=== PATIENT | male | born 1995 | race Caucasian/White ===

== ENCOUNTER 2019-01-30 16:47 | Observation (INO) ==
--- NOTE | 2019-01-30 17:33 | Emergency Department Note ---
Disposition Clinical Impression: Nausea & vomiting Qualifiers: Vomiting type: cyclical vomiting Vomiting Intractability: non-intractable Qualified Code(s): G43.A0 - Cyclical vomiting, not intractable Abdominal pain Qualifiers: Abdominal location: right upper quadrant Qualified Code(s): R10.11 - Right upper quadrant pain Diarrhea Qualifiers: Diarrhea type: unspecified type Qualified Code(s): R19.7 - Diarrhea, unsp ecified Disposition: Admitted As Inpatient Condition: Good Time of Disposition: 20:05 General Adult HPI - General Chief complaint: ED Abdominal Pain Stated complaint: ABD Pain,Nausea,Vomiting,CORNELL Time Seen by Provider: 01/30/19 17:11 Source: patient Limitations: no limitations Nursing Notes Reviewed: Yes Vital Signs Reviewed: Yes - History of Present Illness HPI Narrative: 24-year-old male with past medical history of gastroparesis, possible Crohn's, and sees gastroenterology and has been seen in the ED at [facility] and [facility] multiple times in the last 7 days who presents to the ED with persistent nausea and vomiting and diarrhea with severe right sided abdominal pain. He states that his gallbladder has been evaluated and that he was told at [facility] that showed g all bladder wall thickening. He states that the zofran and benadryl he was given is no longer working and that his HIDA scan isn't scheduled until Wednesday. He admits to generalized fatigue and hasn't been able to keep anything down but some liquids for the past couple days. He denies CP, palpitations, SOB, recent trauma or injury, focal weakness, numbness or tingling. Pt Subjective Complaint: abdominal pain, nausea and vomiting Pain Scale: 10 - Related Data Previous Rx's Medication Instructions Recorded Dicyclomine [Bentyl] 10 mg PO QID 14 Days #56 capsule 01/25/18 Promethazine [Phenergan] 25 mg PO Q6HR PRN #20 tablet 01/25/18 Omeprazole [PriLOSEC] 20 mg PO BIDAC #30 cap 01/29/18 Sucralfate [Carafate] 1 gm PO 0730,1630 #8 tablet 01/29/18 Potassium Chloride 20 meq PO BID #4 tab.er.prt 06/14/18 Ondansetron ODT [Zofran ODT] 4 mg SL Q4HR #16 tab.rapdis 06/16/18 Promethazine [Phenergan] 25 mg PO Q8HR PRN #14 tablet 06/30/18 Sucralfate [Carafate] 1 gm PO QIDAC #30 tablet 07/01/18 Ondansetron ODT [Zofran ODT] 4 mg SL Q4HR PRN #6 tab.rapdis 07/02/18 Ondansetron ODT [Zofran ODT] 4 mg SL Q8HR #10 tab.rapdis 10/07/18 Pantoprazole Sodium [Protonix] 40 mg PO DAILY #30 tablet. 10/07/18 Sucralfate [Carafate] 1 gm PO QIDAC #10 tablet 10/07/18 Promethazine [Phenergan] 12.5 mg PO Q6HR PRN #7 tablet 10/08/18 Promethazine [Phenergan] 12.5 mg RC Q6HR PRN #12 supp.rect 10/09/18 Hydrocortisone Acetate [Anucort-HC] 25 mg RC BID #10 supp.rect 10/30/18 Pantoprazole Sodium [Protonix] 20 mg PO BID #6 tab 10/30/18 Promethazine [Phenergan] 12.5 mg PO Q6HR #7 tablet 10/30/18 DiphenhydraMINE [Benadryl] 25 mg PO Q6HR #20 capsule 01/21/19 Metoclopramide [Reglan] 10 mg PO Q6HR #20 tablet 01/21/19 Prochlorperazine Maleate 10 mg PO Q8HR PRN #10 tablet 01/25/19 [Compazine] cephALEXin [Keflex] 500 mg PO BID #10 capsule 01/25/19 Allergies Allergy/AdvReac Type Severity Reaction Status Date / Time prochlorperazine Allergy Unconscious Verified 01/30/19 21:42 [From Compazine] haloperidol [From Haldol] AdvReac See Verified 07/02/18 18:38 Comments metoclopramide [From Reglan] AdvReac Seizure Verified 01/30/19 21:42 promethazine [From Phenergan] AdvReac Seizure Verified 01/30/19 21:42 All systems ED: reviewed and negative except as stated. Past Medical History - Past Medical History Medical history: Reports: GERD, other Psychiatric history: Reports: no psych history - Social History Smoking Status: Never smoker Smokeless Tobacco Status: No Alcohol use: Reports: none Drug use: Reports: none Physical Exam - General Limitations: no limitations General appearance: alert (lying comfortably in bed in no acute distress) - Head Head exam: atraumatic, normocephalic - Eye Eye exam: Present: normal appearance, EOMI - ENT ENT exam: mucous membranes dry - Neck Neck exam: Present: normal inspection, full ROM, trachea midline - Respiratory Respiratory exam: Present: normal lung sounds bilaterally. Absent: respiratory distress, wheezes - Cardiovascular Cardiovascular exam: Present: regular rate, normal rhythm, +S1, +S2 - Abdominal Exam Abdominal exam: Present: soft, guarding, hypoactive bowel sounds, Vanessa's sign, other (no rashes, bruising, or scrarring noted). Absent: distention, rebound, rigidity - Extremities Exam Extremities exam: Present: normal inspection. Absent: tenderness, pedal edema - Neurological Exam Neurological exam: Present: alert, oriented X3. Absent: motor sensory deficit - Psychiatric Psychiatric exam: Present: normal affect, agitated - Skin Skin exam: Present: warm, dry, intact. Absent: rash, cyanosis, diaphoresis Course Vital Signs Temperature 98.2 F 01/30/19 16:55 Pulse Rate 108 01/30/19 16:55 Respiratory Rate 20 01/30/19 16:55 Blood Pressure 126/87 01/30/19 16:55 O2 Sat by Pulse Oximetry 97 01/30/19 16:55 Temperature 97.5 F L 01/31/19 22:15 Pulse Rate 80 01/31/19 22:15 Respiratory Rate 16 01/31/19 22:15 Blood Pressure 115/78 01/31/19 22:15 O2 Sat by Pulse Oximetry 95 01/31/19 22:15 Oxygen Delivery Oxygen Delivery Room Air Medical Decision Making - [facility] Narrative Medical decision making narrative: Clinically, suspect possible cholecystitis versus IBD. Diarrhea appears to be more chronic. RUQ abdominal pain with positive Vanessa's sign positive on exam. Slight improvement after zofran, toradol, levsin, however patient states he still feel terrible. No vomiting noted during his stay in the ED. Gallbladder ultrasound with evidence of gallbladder sludge, possible cholecystitis. WBC 11.4. Hepatic panel wnl. Vitals stable. [address] Myles who accepted the patient for admission. - Medical Records Medical records reviewed: Yes I reviewed the patient's medical records. - Lab Data Lab results reviewed: Yes I reviewed the patient's lab results. Result diagrams: 01/30/19 17:11 01/31/19 04:59 Lab Results 01/30/19 01/30/19 01/30/19 Range/Units 17:11 17:11 18:24 WBC 11.4 H (4.3-11.1) K/mcL RBC 5.20 (4.19-5.50) M/mcL Hgb 16.3 (12.9-16.9) g/dL Hct 44.3 (37.5-50.1) % MCV 85.2 (83.0-100.0) fL MCH 31.3 (28.0-33.3) pg MCHC 36.8 H (31.6-35.5) g/dL RDW 11.6 (11.5-14.5) % Plt Count 325 (140-400) K/mcL MPV 9.6 (9.4-12.4) fL Immature Gran % 0.4 (0-4) % Seg Neutrophils % 67.3 % Lymphocytes % 24.7 % Monocytes % 7.1 % Eosinophils % 0.2 % Basophils % 0.3 % Neutrophils # 7.7 (1.6-8.9) K/mcL Lymphocytes # 2.8 (0.6-4.6) K/mcL Monocytes # 0.8 (0.0-1.3) K/mcL Eosinophils # 0.0 (0.0-0.6) K/mcL Basophils # 0.0 (0.0-0.2) K/mcL Sodium 136 (136-145) mEq/L Potassium 2.9 L (3.5-5.1) mEq/L Chloride 100 (98-107) mEq/L Carbon Dioxide 24 (23-29) mEq/L BUN 6 (6-20) mg/dL Creatinine 1.04 (0.70-1.30) mg/dL Est GFR ( Amer) > 60 (> 60) Est GFR (Non-Af Amer) > 60 (> 60) BUN/Creatinine Ratio 6 (6-26) Glucose 110 H (70-105) mg/dL Calculated Osmolality 280 (280-300) Calcium 10.1 (8.6-10.3) mg/dL Magnesium 2.2 (1.6-2.6) mg/dL Total Bilirubin 1.0 (0.3-1.0) mg/dL Direct Bilirubin 0.2 (0.0-0.2) mg/dL Indirect Bilirubin 0.8 (0.0-1.2) mg/dL AST 16 (13-39) Units/L ALT 16 (7-52) Units/L Alkaline Phosphatase 55 (34-104) Units/L Serum Total Protein 7.5 (6.4-8.9) g/dL Albumin 5.1 (3.5-5.7) g/dL Globulin 2.4 (2.4-3.5) g/dL Albumin/Globulin Ratio 2.1 (1.1-2.2) Lipase 14 (11-82) Units/L Urine Color Dark Yellow (Yellow) Urine Clarity Clear (Clear) Urine pH 6.0 (5.0-8.0) pH Units Ur Specific [place] 1.026 H (1.010-1.025) Urine Protein Trace (Neg-Trace) mg/dL Urine Glucose (UA) Normal (Normal) mg/dL Urine Ketones 40 H (Negative) mg/dL Urine Blood Negative (Negative) Urine Nitrite Negative (Negative) Urine Bilirubin Small H (Negative) Urine Urobilinogen Normal (Normal) mg/dL Ur Leukocyte Esterase Negative (Negative) Ur Culture Indicated? NO (NO) - Radiology Data Radiology results reviewed: Yes I reviewed the patient's radiology results. Attestation Statement - Attestation Attestation: Resident Attestation: I examined this patient and my medical decision making was reviewed with the Resident Physician. I agree with the documented findings, disposition and treatment plan as described except to the extent set forth below. We independently had [id number] contact with the patient. Patient with right upper quadrant abdominal pain that has been persistent. Pat lukasz states he is been tried as an outpatient but is supposed to get a HIDA scan. Pain is worse than it has been. Patient will undergo further workup including blood work as well as ultrasound. Patient's abdomen has moderate tenderness right upper quadrant with positive Vanessa sign. No rebound or guarding. Case was discussed with Dr. Myles after possible acute cholecystitis seen on ultrasound. Patient accepted for admission.
[2019-01-30] MEDS ORDERED: Ondansetron ODT 4 MG TAB.RAPDIS SL ONE (18:01)
[2019-01-30] MEDS ORDERED: Ketorolac 15 MG/ML VIAL IVP ONE (18:05)
[2019-01-30 18:46] LABS: Bilirubin,Urine Small (Negative); Blood,Urine Negative (Negative); Clarity,Urine Clear (Clear); Color,Urine Dark Yellow (Yellow); Glucose,Urine (UA) Normal (Normal); Ketones,Urine 40 mg/dL (Negative); Leukocyte Esterase,Urine Negative (Negative); Nitrite,Urine Negative (Negative); Protein,Urine Trace mg/dL (Neg-Trace); Specific Gravity,Urine 1.026 (1.010-1.025); Urobilinogen,Urine Normal (Normal)
[2019-01-30 18:49] LABS: Basophils % 0.3 %; Eosinophils % 0.2 %; Hematocrit 44.3 % (37.5-50.1); Hemoglobin 16.3 g/dL (12.9-16.9); Immature Granulocytes % 0.4 % (0-4); Lymphocytes # 2.8 K/mcL (0.6-4.6); Lymphocytes % 24.7 %; Mean Corpuscular HGB Conc 36.8 g/dL (31.6-35.5); Mean Corpuscular Hemoglobin 31.3 pg (28.0-33.3); Mean Corpuscular Volume 85.2 fL (83.0-100.0); Mean Platelet Volume 9.6 fL (9.4-12.4); Monocytes # 0.8 K/mcL (0.0-1.3); Monocytes % 7.1 %; Neutrophils # 7.7 K/mcL (1.6-8.9); Platelet Count 325 K/mcL (140-400); Red Cell Distribution Width 11.6 % (11.5-14.5); Segmented Neutrophils % 67.3 %; White Blood Count 11.4 K/mcL (4.3-11.1)
[2019-01-30] MEDS: Hyoscyamine SL 0.125 MG TAB.SUBL SL PRN (18:56)
[2019-01-30 19:07] LABS: Alanine Aminotransferase 16 Units/L (7-52); Albumin 5.1 g/dL (3.5-5.7); Albumin/Globulin Ratio 2.1 (1.1-2.2); Alkaline Phosphatase 55 Units/L (34-104); Aspartate Amino Transferase 16 Units/L (13-39); BUN/Creatinine Ratio 6 (6-26); Bilirubin,Direct 0.2 mg/dL (0.0-0.2); Bilirubin,Indirect 0.8 mg/dL (0.0-1.2); Blood Urea Nitrogen 6 mg/dL (6-20); Calcium 10.1 mg/dL (8.6-10.3); Carbon Dioxide 24 mEq/L (23-29); Chloride 100 mEq/L (98-107); Globulin 2.4 g/dL (2.4-3.5); Glucose 110 mg/dL (70-105); Lipase 14 Units/L (11-82); Magnesium 2.2 mg/dL (1.6-2.6); Osmolality,Calculated 280 (280-300); Potassium 2.9 mEq/L (3.5-5.1); Sodium 136 mEq/L (136-145); Total Protein 7.5 g/dL (6.4-8.9); eGFR For African Americans > 60 (> 60); eGFR For Non-African Americans > 60 (> 60)
[2019-01-30] MEDS ORDERED: Piperacillin/Tazobactam 3.375 GM in Water for inj. (sterile) 20 ML 20 ML IVP ONE (20:05)
[2019-01-30] MEDS ORDERED: 0.9 % Sodium Chloride 1,000 ML IVC ONE (21:43)
[2019-01-30] MEDS: Ondansetron 4 MG/2 ML VIAL IVP PRN (22:18)
[2019-01-30] MEDS: *HR* OxyCODONE/APAP 10/325 TABLET PO PRN (22:19)
[2019-01-30] MEDS ORDERED: Potassium Chloride 40 MEQ, Lidocaine 1% 2 ML in D5% in Water 500 ML IVPB ONE (22:27)
--- NOTE | 2019-01-30 22:30 | Acute Care Surgery H&P ---
Date of Encounter: 01/30/19 Time of Encounter: 22:30 Assessment and Plan (1) Acute cholecystitis without calculus Current Visit: Yes Status: Acute The assessment and plan as outlined above was discussed with the patient and/or family members who expressed understanding and agreement. All questions were answered. patient appears to have acute acalculous cholecystitis. We will plan antibiotic therapy followed by laparoscopic cholecystectomy and cholangiogram tomorrow. History of Present Illness Chief complaint: Abdominal pain HPI: Mr. Kaiser is a 24 year old male The patient has had greater than 7 days of continuous right upper quadrant abdominal pain associated with nausea and vomiting. He is had multiple evaluations in various emergency rooms. Today he had positive Vanessa sign during ultrasound evaluation of the right upper quadrant in the emergency room. The patient does have gallbladder sludge and leukocytosis. Findings are consistent with acute cholecystitis. The patient denies episodes of jaundice. He does have shakes and chills but no fevers. We will plan 12 hours of IV antibiotics followed by laparoscopic cholecystectomy tomorrow. I discussed the risks and benefits of surgery with the patient including leading infection and postoperative bile leak. He understands wishes to proceed. Past Med Surg Social Fam HX - Past Medical History Medical history: GERD Additional medical history: Gastroparesis, Crohns workup w/ Dr Engel Psychiatric history: no psych history - Past Surgical History Additional surgical history: esophageal cyst sx. pilondeal cyst. wisdom teeth - Social History Smoking Status: Never smoker Smokeless Tobacco Status: No Alcohol use: none Drug use: none - Family History Mother Hx Family Cancer: Yes Medications and Allergies Dicyclomine [Bentyl] 10 mg PO QID 14 Days #56 capsule 01/25/18 [Rx] Promethazine [Phenergan] 25 mg PO Q6HR PRN #20 tablet 01/25/18 [Rx] Omeprazole [PriLOSEC] 20 mg PO BIDAC #30 cap 01/29/18 [Rx] Sucralfate [Carafate] 1 gm PO 0730,1630 #8 tablet 01/29/18 [Rx] Potassium Chloride 20 meq PO BID #4 tab.er.prt 06/14/18 [Rx] Ondansetron ODT [Zofran ODT] 4 mg SL Q4HR #16 tab.rapdis 06/16/18 [Rx] Promethazine [Phenergan] 25 mg PO Q8HR PRN #14 tablet 06/30/18 [Rx] Sucralfate [Carafate] 1 gm PO QIDAC #30 tablet 07/01/18 [Rx] Ondansetron ODT [Zofran ODT] 4 mg SL Q4HR PRN #6 tab.rapdis 07/02/18 [Rx] Ondansetron ODT [Zofran ODT] 4 mg SL Q8HR #10 tab.rapdis 10/07/18 [Rx] Pantoprazole Sodium [Protonix] 40 mg PO DAILY #30 tablet. 10/07/18 [Rx] Sucralfate [Carafate] 1 gm PO QIDAC #10 tablet 10/07/18 [Rx] Promethazine [Phenergan] 12.5 mg PO Q6HR PRN #7 tablet 10/08/18 [Rx] Promethazine [Phenergan] 12.5 mg RC Q6HR PRN #12 supp.rect 10/09/18 [Rx] Hydrocortisone Acetate [Anucort-HC] 25 mg RC BID #10 supp.rect 10/30/18 [Rx] Pantoprazole Sodium [Protonix] 20 mg PO BID #6 tab 10/30/18 [Rx] Promethazine [Phenergan] 12.5 mg PO Q6HR #7 tablet 10/30/18 [Rx] DiphenhydraMINE [Benadryl] 25 mg PO Q6HR #20 capsule 01/21/19 [Rx] Metoclopramide [Reglan] 10 mg PO Q6HR #20 tablet 01/21/19 [Rx] Prochlorperazine Maleate [Compazine] 10 mg PO Q8HR PRN #10 tablet 01/25/19 [Rx] cephALEXin [Keflex] 500 mg PO BID #10 capsule 01/25/19 [Rx] Allergy/AdvReac Type Severity Reaction Status Date / Time prochlorperazine Allergy Unconscious Verified 01/30/19 21:42 [From Compazine] haloperidol [From Haldol] AdvReac See Verified 07/02/18 18:38 Comments metoclopramide [From Reglan] AdvReac Seizure Verified 01/30/19 21:42 promethazine [From Phenergan] AdvReac Seizure Verified 01/30/19 21:42 Review of Systems All systems PM: The remainder of the systems were reviewed and are negative General Surgery Exam Initial Vital Signs Temp Pulse Resp BP Pulse Ox 98.2 F 108 20 126/87 97 01/30/19 16:55 01/30/19 16:55 01/30/19 16:55 01/30/19 16:55 01/30/19 16:55 - General physical appearance well developed, well nourished, moderate distress, moderate pain - Neck no masses, no bruits, trachea midline, no lymphadectomy, no venous distension - Respiratory normal expansion, normal respiratory effort, clear to percussion, clear to auscultation - Cardiovascular Cardiovascular exam: Present: RRR, no murmurs/rubs/gallops - Abdomen Abdomen general surgery: Present: bowel sounds present, tender Abdominal Tenderness: Present: RUQ - Integumentary Integumentary general surgery: Present: warm and dry, no abnormal pigmentation, other (No evidence of jaundice) - Neurologic Present: CN 2-12 grossly intact, normal coordination, normal sensation - Psychiatric Psychiatric general surgery: Present: appropriate, oriented to person, oriented to place, oriented to time, speech is normal, memory intact Results - Labs 01/30/19 17:11 01/30/19 17:11 Abnormal lab results WBC 11.4 K/mcL (4.3-11.1) H 01/30/19 17:11 MCHC 36.8 g/dL (31.6-35.5) H 01/30/19 17:11 Potassium 2.9 mEq/L (3.5-5.1) L 01/30/19 17:11 Glucose 110 mg/dL (70-105) H 01/30/19 17:11 Ur Specific [place] 1.026 (1.010-1.025) H 01/30/19 18:24 40 mg/dL (Negative) H 01/30/19 18:24 Small (Negative) H 01/30/19 18:24 Diabetes panel 01/30/19 Range/Units 17:11 Sodium 136 (136-145) mEq/L Potassium 2.9 L (3.5-5.1) mEq/L Chloride 100 (98-107) mEq/L Carbon Dioxide 24 (23-29) mEq/L BUN 6 (6-20) mg/dL Creatinine 1.04 (0.70-1.30) mg/dL Glucose 110 H (70-105) mg/dL Calcium 10.1 (8.6-10.3) mg/dL AST 16 (13-39) Units/L ALT 16 (7-52) Units/L Alkaline Phosphatase 55 (34-104) Units/L Albumin 5.1 (3.5-5.7) g/dL Calcium panel 01/30/19 Range/Units 17:11 Calcium 10.1 (8.6-10.3) mg/dL Albumin 5.1 (3.5-5.7) g/dL Pituitary panel 01/30/19 Range/Units 17:11 Sodium 136 (136-145) mEq/L Potassium 2.9 L (3.5-5.1) mEq/L Chloride 100 (98-107) mEq/L Carbon Dioxide 24 (23-29) mEq/L BUN 6 (6-20) mg/dL Creatinine 1.04 (0.70-1.30) mg/dL Glucose 110 H (70-105) mg/dL Calcium 10.1 (8.6-10.3) mg/dL Adrenal panel 01/30/19 Range/Units 17:11 Sodium 136 (136-145) mEq/L Potassium 2.9 L (3.5-5.1) mEq/L Chloride 100 (98-107) mEq/L Carbon Dioxide 24 (23-29) mEq/L BUN 6 (6-20) mg/dL Creatinine 1.04 (0.70-1.30) mg/dL Glucose 110 H (70-105) mg/dL Calcium 10.1 (8.6-10.3) mg/dL Total Bilirubin 1.0 (0.3-1.0) mg/dL AST 16 (13-39) Units/L ALT 16 (7-52) Units/L Alkaline Phosphatase 55 (34-104) Units/L Albumin 5.1 (3.5-5.7) g/dL All other labs normal. - Imaging US - abdomen: image reviewed (I personally reviewed the ultrasound right upper quadrant. The patient did have positive Vanessa sign during the examination. He does have sludge in gallbladder. To my examination there is a thickened gallbladder wall.) - VTE Reasons for not Prescribing Prophylaxis: Treatment not Indicated - Low risk for VTE
[2019-01-31] MEDS: *HR* OxyCODONE/APAP 10/325 TABLET PO PRN ×2 (04:07→22:07)
[2019-01-31] MEDS: Ondansetron 4 MG/2 ML VIAL IVP PRN ×4 (04:09→22:06)
[2019-01-31 05:46] LABS: BUN/Creatinine Ratio 6 (6-26); Blood Urea Nitrogen 7 mg/dL (6-20); Calcium 9.6 mg/dL (8.6-10.3); Carbon Dioxide 26 mEq/L (23-29); Chloride 102 mEq/L (98-107); Glucose 105 mg/dL (70-105); Osmolality,Calculated 284 (280-300); Potassium 3.7 mEq/L (3.5-5.1); Sodium 138 mEq/L (136-145); eGFR For African Americans > 60 (> 60); eGFR For Non-African Americans > 60 (> 60)
[2019-01-31] MEDS: Hyoscyamine SL 0.125 MG TAB.SUBL SL PRN ×2 (06:09→12:05)
[2019-01-31] MEDS: cefOXitin 2,000 MG in Water for inj. (sterile) 20 ML 20 ML IVP SCH ×3 (08:28→16:18)
[2019-01-31] MEDS: *HR* HYDROmorphone (PF) 1 MG/ML SYRINGE IVP PRN ×6 (08:35→19:55)
[2019-01-31] MEDS ORDERED: Isovue-300 50 ML VIAL ONE (17:51)
--- NOTE | 2019-01-31 17:59 | Anesthesia Evaluation PreOp ---
Date of Encounter: 01/31/19 Time of Encounter: 18:00 - Past History Planned Operation: Lap Cholecystectomy Cardiac History: Denies any Significant Hx Pulmonary History: Smoker (Marijuana occasional) INFORMATION LEAD History: Denies Any Significant HX Other Medical History: GERD, Other (Crohn's) Anesthesia History: No Prior Anesthetic Complications Alcohol Use: none Drug use: none Medications and Allergies Dicyclomine [Bentyl] 10 mg PO QID 14 Days #56 capsule 01/25/18 [Rx] Promethazine [Phenergan] 25 mg PO Q6HR PRN #20 tablet 01/25/18 [Rx] Omeprazole [PriLOSEC] 20 mg PO BIDAC #30 cap 01/29/18 [Rx] Sucralfate [Carafate] 1 gm PO 0730,1630 #8 tablet 01/29/18 [Rx] Potassium Chloride 20 meq PO BID #4 tab.er.prt 06/14/18 [Rx] Ondansetron ODT [Zofran ODT] 4 mg SL Q4HR #16 tab.rapdis 06/16/18 [Rx] Promethazine [Phenergan] 25 mg PO Q8HR PRN #14 tablet 06/30/18 [Rx] Sucralfate [Carafate] 1 gm PO QIDAC #30 tablet 07/01/18 [Rx] Ondansetron ODT [Zofran ODT] 4 mg SL Q4HR PRN #6 tab.rapdis 07/02/18 [Rx] Ondansetron ODT [Zofran ODT] 4 mg SL Q8HR #10 tab.rapdis 10/07/18 [Rx] Pantoprazole Sodium [Protonix] 40 mg PO DAILY #30 tablet.dr 10/07/18 [Rx] Sucralfate [Carafate] 1 gm PO QIDAC #10 tablet 10/07/18 [Rx] Promethazine [Phenergan] 12.5 mg PO Q6HR PRN #7 tablet 10/08/18 [Rx] Promethazine [Phenergan] 12.5 mg RC Q6HR PRN #12 supp.rect 10/09/18 [Rx] Hydrocortisone Acetate [Anucort-HC] 25 mg RC BID #10 supp.rect 10/30/18 [Rx] Pantoprazole Sodium [Protonix] 20 mg PO BID #6 tab 10/30/18 [Rx] Promethazine [Phenergan] 12.5 mg PO Q6HR #7 tablet 10/30/18 [Rx] DiphenhydraMINE [Benadryl] 25 mg PO Q6HR #20 capsule 01/21/19 [Rx] Metoclopramide [Reglan] 10 mg PO Q6HR #20 tablet 01/21/19 [Rx] Prochlorperazine Maleate [Compazine] 10 mg PO Q8HR PRN #10 tablet 01/25/19 [Rx] cephALEXin [Keflex] 500 mg PO BID #10 capsule 01/25/19 [Rx] Allergy/AdvReac Type Severity Reaction Status Date / Time prochlorperazine Allergy Unconscious Verified 01/30/19 21:42 [From Compazine] haloperidol [From Haldol] AdvReac See Verified 07/02/18 18:38 Comments metoclopramide [From Reglan] AdvReac Seizure Verified 01/30/19 21:42 promethazine [From Phenergan] AdvReac Seizure Verified 01/30/19 21:42 - Meds/Allergy Pre-op Review Medications Reviewed: Yes Allergies Reviewed: Yes Beta Blockers on Current Med List: No Anesthesia Results - Labs 01/30/19 17:11 01/31/19 04:59 Laboratory Tests 01/30/19 01/31/19 17:11 04:59 Hgb 16.3 Hct 44.3 Plt Count 325 Sodium 138 Potassium 3.7 D BUN 7 Creatinine 1.19 - Imaging EKG: report reviewed (SR) Anesthesia Exam O2 Sat Height 1.8 m Weight 90 kg O2 Sat by Pulse Oximetry 98 O2 Sat by Pulse Oximetry 98 O2 Sat by Pulse Oximetry 98 O2 Sat by Pulse Oximetry 98 O2 Sat by Pulse Oximetry 98 O2 Sat by Pulse Oximetry 99 O2 Sat by Pulse Oximetry 97 O2 Sat by Pulse Oximetry 97 Vital Signs Temp Pulse Resp BP Pulse Ox 98.2 F 108 20 126/87 97 01/30/19 16:55 01/30/19 16:55 01/30/19 16:55 01/30/19 16:55 01/30/19 16:55 Height: 5'11 Weight: 198 lbs NPO (# of Hours): MN Pain Scale: 0 - HEENT Pupil (Motor): Pupils equal, EOMI Mallampati: II Teeth: Normal Oral Opening: Greater than 3 - INFORMATION LEAD LOC: Oriented INFORMATION LEAD Motor: Normal RUE, Normal LUE, Normal RLE, Normal LLE, Normal Face INFORMATION LEAD Sensory: Normal: RUE, LUE, RLE, LLE, Face - Cardiac Rhythm: Regular Murmur: None JVD: No Carotid Bruit: No - Pulmonary Breath Sounds: bilateral Clear Respiratory Effort: Symmetrical Anesthesia Assess/Plan ASA Score: 2 Level of consciousness: Cooperative, Oriented Anesthetic Plan: General Autologous Blood: No Monitoring Plan: Standard Monitors Recovery Plan: PACU (Discussed GA, agrees to proceed)
[2019-01-31] MEDS ORDERED: cefOXitin 1,000 MG, 0.9 % Sodium Chloride 1,000 ML IR ONE ×2 (18:00→20:42)
[2019-01-31] MEDS ORDERED: Acetaminophen IV 1,000 MG/100 ML INFUS..BTL ONE (18:08)
[2019-01-31] MEDS ORDERED: Lidocaine -MPF 2% 2 ML VIAL ONE (18:35)
[2019-01-31] MEDS ORDERED: *HR* FentaNYL (PF) 100 MCG/2 ML VIAL ONE (18:35)
[2019-01-31] MEDS ORDERED: *HR* Propofol 200 MG/20 ML VIAL IVP ONE ×2 (18:35)
[2019-01-31] MEDS ORDERED: *HR* HYDROMORPHONE 2 MG/ML VIAL ONE (18:36)
--- NOTE | 2019-01-31 19:14 | Operative Note ---
Date of procedure: 01/31/19 Pre-op diagnosis: Acute cholecystitis Post-op diagnosis: same Procedure: Scopic cholecystectomy, cholangiogram Anesthesia: GETA Was there an licensed physical therapy assistant present: No Estimated blood loss (cc): 10 Specimen: Gallbladder and contents Condition: stable Disposition: PACU Procedure in Detail: Laparoscopic cholecystectomy and intraoperative cholangiogram Operative procedure: after informed consent and appropriate patient identification, the patient was taken to the major operating suite and placed supine position and given adequate general endotracheal anesthesia. The abdomen was prepped and draped in sterile fashion utilizing ChloraPrep standard draping techniques. Timeout was taken and the patient was identified. I made a vertical midline incision below the umbilicus and dissected down to level of fascia. I placed 2 traction stitches of 0 vicryl in the midline fascia and the abdominal cavity was entered visually. A Ayoub trocar was placed in the abdomen and the abdomen was insufflated to 15 mmHg pressure CO2. The gallbladder was visualized. The gallbladder had chronic inflammatory adhesions I placemed an 11 port in the subxiphoid area and two 5 mm ports in the subcostal area. The gallbladder was grasped and elevated. A variety of blunt and sharp dissection techniques were used to isolate the cystic duct and cystic artery. The cystic artery was controlled with 2 surgical clips proximally and one distally and it was divided. I placed a surgical clip on the neck the gallbladder and obtained an intraoperative cholangiogram using 10 mL of Isovue. Intraoperative cholangiogram was normal. The cholangiocatheter was removed and the cystic duct was controlled with 2 surgical clips proximally and was divided. The gallbladder was removed from the gallbladder fossae using electrocautery. The gallbladder was removed from the abdomen through the #11 port site. I replaced the #11 port and irrigated with copious amounts of antibiotic containing solution. There was no evidence of bleeding or bile leak. All trochars were removed. Fascia was closed with 0 Vicryl and the skin with 2-0 and 4-0 Vicry. He tolerated the procedure well and was transferred to recovery in stable condition
[2019-01-31] MEDS ORDERED: *HR* OxyCODONE Immed Rel 5 MG TABLET PO PRN (19:20)
--- NOTE | 2019-01-31 20:34 | Anesthesia Evaluation Post Op ---
Date of Encounter: 01/31/19 Time of Encounter: 20:15 - Vital Signs Vital Signs: Vital Signs/O2 Sat/Glucose, Most Current Temp Pulse Resp BP Pulse Ox 01/31/19 20:08 99.3 F 93 16 123/86 94 01/31/19 19:58 92 16 126/81 93 01/31/19 19:48 99.2 F 93 16 137/90 94 01/31/19 19:38 103 20 137/93 94 01/31/19 19:28 104 20 143/97 98 01/31/19 19:18 98.2 F 103 20 143/94 98 - Lungs Lungs: Clear Ascult./Percussion - Airway Airway: Non-obstructed - Cardiovascular Regular Rate - Mental Status Mental Status: Alert & Oriented, Answers Appropriately - Pain Pain Scale: 0 - Nausea Vomiting Nausea Vomiting: Not Present - Hydration Hydration: Ice chips - Discharge PostOp Status: Transfer Patient to floor
[2019-01-31] MEDS ORDERED: Hyoscyamine SL 0.125 MG TAB.SUBL SL PRN (20:42)
[2019-02-01] MEDS: cefOXitin 2,000 MG in Water for inj. (sterile) 20 ML 20 ML IVP SCH ×2 (00:30→07:49)
[2019-02-01] MEDS: *HR* HYDROmorphone (PF) 1 MG/ML SYRINGE IVP PRN ×2 (00:32→05:33)
[2019-02-01] MEDS: Ondansetron 4 MG/2 ML VIAL IVP PRN (05:29)
[2019-02-01 07:42] LABS: Basophils % 0.2 %; Eosinophils # 0.2 K/mcL (0.0-0.6); Eosinophils % 1.4 %; Hematocrit 39.7 % (37.5-50.1); Immature Granulocytes % 0.3 % (0-4); Lymphocytes # 2.9 K/mcL (0.6-4.6); Lymphocytes % 25.4 %; Mean Corpuscular HGB Conc 34.5 g/dL (31.6-35.5); Mean Corpuscular Hemoglobin 31.1 pg (28.0-33.3); Mean Platelet Volume 9.3 fL (9.4-12.4); Monocytes # 0.8 K/mcL (0.0-1.3); Neutrophils # 7.6 K/mcL (1.6-8.9); Platelet Count 242 K/mcL (140-400); Red Blood Count 4.41 M/mcL (4.19-5.50); Red Cell Distribution Width 11.5 % (11.5-14.5); Segmented Neutrophils % 65.7 %; White Blood Count 11.6 K/mcL (4.3-11.1)
[2019-02-01 07:46] LABS: Hemoglobin 13.7 g/dL (12.9-16.9)
[2019-02-01] MEDS: *HR* OxyCODONE/APAP 10/325 TABLET PO PRN (07:49)
[2019-02-01 08:00] LABS: BUN/Creatinine Ratio 8 (6-26); Blood Urea Nitrogen 8 mg/dL (6-20); Calcium 9.2 mg/dL (8.6-10.3); Carbon Dioxide 27 mEq/L (23-29); Chloride 102 mEq/L (98-107); Glucose 92 mg/dL (70-105); Osmolality,Calculated 282 (280-300); Potassium 3.3 mEq/L (3.5-5.1); Sodium 137 mEq/L (136-145); eGFR For African Americans > 60 (> 60); eGFR For Non-African Americans > 60 (> 60)
--- NOTE | 2019-02-01 09:34 | Discharge Summary ---
<Misha Humphrey P - Last Filed: 02/01/19 11:51> - NOTES TO OUTPATIENT PROVIDER Notes to Outpatient Provider: He will follow-up within 2 weeks in [facility] surgery outpatient clinic. Please read and follow given surgical instructions. Orders not resulted at time of discharge: Pending orders 01/31/19 18:52 Surgical Pathology [PTH] Routine Date of Encounter: 02/01/19 Time of Encounter: 09:15 - Discharge Diagnosis (1) Acute cholecystitis without calculus Priority: Primary Status: Acute General Surgery Exam Initial Vital Signs Temp Pulse Resp BP Pulse Ox 98.2 F 108 20 126/87 97 01/30/19 16:55 01/30/19 16:55 01/30/19 16:55 01/30/19 16:55 01/30/19 16:55 - General physical appearance well nourished, no distress, moderate pain - Eyes PERRL, normal ocular movement - ENT normal nares, normal mucosa, no congestion - Neck no masses, no bruits, trachea midline, no lymphadectomy, no venous distension - Respiratory normal expansion, normal respiratory effort, clear to percussion, clear to auscultation - Cardiovascular Cardiovascular exam: Present: RRR, regular rhythm, no murmurs/rubs/gallops - Abdomen Abdomen general surgery: Present: bowel sounds present, soft, tender. Absent: guarding, rebound, rigid Hernia: Present: none - Incision Incision: Present: clean and dry, intact - Integumentary Integumentary general surgery: Present: warm and dry - Neurologic Present: CN 2-12 grossly intact, normal coordination, normal sensation - Musculoskeletal Present: normal gait - Psychiatric Psychiatric general surgery: Present: A&Ox3, appropriate, oriented to person, oriented to place, oriented to time - Hospital Course Hospital course: Mr. Kaiser is a 24 year old male who was presented to [facility] emergency for severe acute right upper abdominal pain for last 7 days that was associated with nausea and vomiting. US abdomen showed :Small amount of gallbladder sludge with tenderness scanning over gallbladder, possibly Acute cholecystitis.On 01/31/2019 Laparoscopic cholecystectomy and intraoperative cholangiogram was performed and specimen was sent for histopathology examination. He did not have any intraoperative and postoperative completion. The patient is gradually recovering from surgery. Patient is progressively getting better, pain is minimal, no vomiting and he is slightly nauseated. His vitals are stable. He is tolerating liquid diet and we are gradually advancing diet .We are planning to send him home later today and he will follow-up in outpatient surgery clinic within 2 weeks. . - Time Spent with Patient Total time spent providing and/or coordinating discharge services: - Discharge Medications Prescriptions: New OxyCODONE/APAP 10/325 [Percocet 10/325 MG] 1 each PO Q6HR PRN 5 Days #20 tablet PRN Reason: Pain Continued Ondansetron ODT [Zofran ODT] 4 mg SL Q4HR PRN #6 tab.rapdis PRN Reason: Nausea Home Medications: Ondansetron ODT [Zofran ODT] 4 mg SL Q4HR PRN #6 tab.rapdis 07/02/18 [Rx] OxyCODONE/APAP 10/325 [Percocet 10/325 MG] 1 each PO Q6HR PRN 5 Days #20 tablet 02/01/19 [Rx] Allergies/Adverse Reactions: Allergy/AdvReac Type Severity Reaction Status Date / Time haloperidol [From Haldol] AdvReac See Verified 02/01/19 09:25 Comments metoclopramide [From Reglan] AdvReac Seizure Verified 02/01/19 09:25 prochlorperazine AdvReac Unconscious Verified 02/01/19 09:25 [From Compazine] promethazine [From Phenergan] AdvReac Seizure Verified 02/01/19 09:25 Date of admission: 01/30/19 20:43 Primary care physician: Satly Wise CNP Labs on day of discharge: Labs from last 24 hours 02/01/19 02/01/19 01/31/19 06:57 06:57 11:36 WBC 11.6 H RBC 4.41 Hgb 13.7 D Hct 39.7 MCV 90.0 MCH 31.1 MCHC 34.5 RDW 11.5 Plt Count 242 MPV 9.3 L Immature Gran % 0.3 Seg Neutrophils % 65.7 Lymphocytes % 25.4 Monocytes % 7.0 Eosinophils % 1.4 Basophils % 0.2 Neutrophils # 7.6 Lymphocytes # 2.9 Monocytes # 0.8 Eosinophils # 0.2 Basophils # 0.0 Sodium 137 Potassium 3.3 L Chloride 102 Carbon Dioxide 27 BUN 8 Creatinine 0.98 Est GFR ( Amer) > 60 Est GFR (Non-Af Amer) > 60 BUN/Creatinine Ratio 8 Glucose 92 POC Glucose 97 Calculated Osmolality 282 Calcium 9.2 - Impressions ITS Impressions Gallbladder Ultrasound 01/30/19 18:04 IMPRESSION: 1. Small amount of gallbladder sludge with tenderness scanning over gallbladder. Acute cholecystitis is a possibility. Nuclear medicine hepatobiliary scan may be obtained for confirmation. D/ / Syed Lutz MD / Syed Lutz MD Interpreting Provider: Syed Lutz MD Cholangiogram,Operative 01/31/19 00:00 IMPRESSION: Imaging performed during intraoperative cholangiogram. Please refer to the operative report for further detail. D/ / Rashad Zarate MD / Rashad Zarate MD Interpreting Provider: Rashad Zarate MD - Patient Status Disposition: Home, Self-Care Condition: Good Functional capacity at discharge: independent ambulation Overall status at discharge: patient is progressing back to baseline - Discharge Instructions Instructions: Laparoscopic Cholecystectomy (DC) Follow Up With: Salty Wise CNP [Primary Care Provider] - Peri Nichole CNP [Advanced Practice Nurse] - 02/17/19 9:15 am Additional Instructions: General Surgical Discharge Instructions 1. No pushing, pulling, or lifting greater than 15 lbs for 2 weeks (depending upon procedure). 2. You may shower beginning today, but no tub baths, soaking, or swimming for 2 weeks. 3. You may resume driving when you are off narcotics and are safe to react in a car. 4. Take ibuprofen every 8 hours for discomfort. If this does not relieve discomfort, you may take the as needed Percocet. Take narcotics as directed. Do not take more narcotics then directed and do not share your narcotics with any other person. Do not drink alcohol while on narcotics. 5. Take stool softeners (Colace) or a water based laxative (Miralax) while taking narcotics. You may hold for loose stools. 6. Report any fevers greater than 100.5F, increase abdominal discomfort, drainage that looks like pus, increased redness or pain at the surgical site, or any vomiting. 7. Report any pain in the calves, shortness of breath, or rapid heartbeat. 8. Follow-up in the office as directed. 9. If you were prescribed antibiotics, do not stop them without talking to your provider. - Diet and Activity Activity: resume usual activities as tolerated Diet: advance to your usual diet <Girma Ponce - Last Filed: 02/02/19 02:13> Orders not resulted at time of discharge: Pending orders 01/31/19 18:52 Surgical Pathology [PTH] Routine Date of Encounter: 02/02/19 General Surgery Exam Initial Vital Signs Temp Pulse Resp BP Pulse Ox 98.2 F 108 20 126/87 97 01/30/19 16:55 01/30/19 16:55 01/30/19 16:55 01/30/19 16:55 01/30/19 16:55 - Hospital Course Hospital course: Mr. Kaiser is a 24 year old male - Time Spent with Patient Total time spent providing and/or coordinating discharge services: Date of admission: 01/30/19 20:43 Primary care physician: Salty Wise CNP Labs on day of discharge: Labs from last 24 hours 02/01/19 02/01/19 01/31/19 06:57 06:57 11:36 WBC 11.6 H RBC 4.41 Hgb 13.7 D Hct 39.7 MCV 90.0 MCH 31.1 MCHC 34.5 RDW 11.5 Plt Count 242 MPV 9.3 L Immature Gran % 0.3 Seg Neutrophils % 65.7 Lymphocytes % 25.4 Monocytes % 7.0 Eosinophils % 1.4 Basophils % 0.2 Neutrophils # 7.6 Lymphocytes # 2.9 Monocytes # 0.8 Eosinophils # 0.2 Basophils # 0.0 Sodium 137 Potassium 3.3 L Chloride 102 Carbon Dioxide 27 BUN 8 Creatinine 0.98 Est GFR ( Amer) > 60 Est GFR (Non-Af Amer) > 60 BUN/Creatinine Ratio 8 Glucose 92 POC Glucose 97 Calculated Osmolality 282 Calcium 9.2 - Impressions ITS Impressions Gallbladder Ultrasound 01/30/19 18:04 IMPRESSION: 1. Small amount of gallbladder sludge with tenderness scanning over gallbladder. Acute cholecystitis is a possibility. Nuclear medicine hepatobiliary scan may be obtained for confirmation. D/ / Syed Lutz MD / Syed Lutz MD Interpreting Provider: Syed Lutz MD Cholangiogram,Operative 01/31/19 00:00 IMPRESSION: Imaging performed during intraoperative cholangiogram. Please refer to the operative report for further detail. D/ / Rashad Zarate MD / Rashad Zarate MD Interpreting Provider: Rashad Zarate MD - Attending Attestation patient seen and examined. i have reviewed all labs, imaging, and notes. i have discussed the case in detail with the patient. i agree with the above assessment and plan.
[2019-02-01] MEDS ORDERED: *HR* HYDROmorphone 2 MG TABLET PO PRN (09:58)
[2019-02-01] MEDS ORDERED: Ondansetron ODT 4 MG TAB.RAPDIS SL PRN (09:58)
[2019-02-01 11:30] VITALS: BP 122/76
== END 2019-02-01 12:46 | disposition home or self-care (01) ==
LOC: EMEROOARM 16:47 → CDU 16:47 → 3ANU 01-31 19:55
PROVIDERS: ADMIT Surgery; ATTEND Surgery

== ENCOUNTER 2019-04-24 10:57 | Inpatient (IN) ==
[2019-04-24] MEDS ORDERED: Ondansetron 4 MG/2 ML VIAL IVP ONE ×3 (11:38→21:16)
[2019-04-24] MEDS ORDERED: Hyoscyamine 0.5 MG/ML MLS IVP ONE (11:38)
[2019-04-24] MEDS ORDERED: 0.9 % Sodium Chloride 1,000 ML IVC ONE ×2 (11:38→16:25)
--- NOTE | 2019-04-24 11:40 | Emergency Department Note ---
Disposition Clinical Impression: Intractable nausea and vomiting Qualifiers: Vomiting type: unspecified Qualified Code(s): R11.2 - Nausea with vomiting, unspecified Disposition: Admitted As Inpatient Time of Disposition: 16:20 General Adult HPI - General Chief complaint: ED Abdominal Pain Stated complaint: abd pain,vomiting Time Seen by Provider: 04/24/19 11:10 Source: patient Mode of arrival: private vehicle Limitations: no limitations Nursing Notes Reviewed: Yes Vital Signs Reviewed: Yes - History of Present Illness HPI Narrative: Mr. Godfrey is a 24yo female with no significant past med hx that presents with 2 days of nausea and vomiting that started on Wednesday morning and has persisted since. Vomiting is associated with sharp R-sided abdominal pain that feels similar to the pain he experienced pre-cholecystectomy a few months back. Patient has tried Zofran and up to 8 Tramadol/day without relief. He finished his pain medication yesterday. Patient had outpatient CT done on Apr 13 for same complaint of nausea and vomiting. This showed no acute intraabdominal or pelvic abnormality. He has had counteless episodes of nonbilious nonbloody emes is. No chest pain, shortness or breath or diarrhea. No dysuria or hematura. Pain Scale: 9 - Related Data Home Medications Medication Instructions Recorded Confirmed DiphenhydraMINE [Benadryl] 25 mg PO Q6HR PRN 04/24/19 04/24/19 Ibuprofen [Ibu] 800 mg PO Q8H PRN 04/24/19 04/24/19 Ondansetron ODT [Zofran ODT] 4 mg SL Q8H PRN 04/24/19 04/24/19 Allergies Allergy/AdvReac Type Severity Reaction Status Date / Time haloperidol [From Haldol] AdvReac See Verified 04/24/19 11:02 Comments metoclopramide [From Reglan] AdvReac Seizure Verified 04/24/19 11:02 prochlorperazine AdvReac Unconscious Verified 04/24/19 11:02 [From Compazine] promethazine [From Phenergan] AdvReac Seizure Verified 04/24/19 11:02 All systems ED: reviewed and negative except as stated. Review of Systems: As Per HPI Constitutional: Denies: fever, chills Cardiovascular: Denies: chest pain, palpitations Respiratory: Denies: cough, wheezes Gastrointestinal: Reports: abdominal pain, nausea, vomiting. Denies: diarrhea, constipation Genitourinary: Denies: urgency, dysuria Past Medical History - Past Medical History Attestation: Yes The following information was validated with the patient. Source: patient Medical history: Reports: no medical history, GERD Psychiatric history: Reports: no psych history - Social History Smoking Status: Never smoker Smokeless Tobacco Status: No Alcohol use: Reports: none Drug use: Reports: marijuana Physical Exam - General Limitations: no limitations General appearance: alert, in no apparent distress, anxious - Head Head exam: atraumatic, normocephalic - Eye Eye exam: Present: normal appearance, PERRL - ENT ENT exam: mucous membranes moist, mucous membranes dry - Neck Neck exam: Present: normal inspection, trachea midline - Chest Chest inspection: Present: normal inspection, symmetric chest wall rise - Respiratory Respiratory exam: Present: normal lung sounds bilaterally. Absent: respiratory distress, wheezes - Cardiovascular Cardiovascular exam: Present: normal rhythm, tachycardia, normal heart sounds - Abdominal Exam Abdominal exam: Present: soft, other (Generalized abdominal tenderness to palpation, no rebound or guarding). Absent: distention - Extremities Exam Extremities exam: Present: normal inspection - Neurological Exam Neurological exam: Present: alert, oriented X3 - Psychiatric Psychiatric exam: Present: normal affect, normal mood - Skin Skin exam: Present: warm, dry Course Vital Signs Temperature 98.3 F 04/24/19 11:00 Pulse Rate 102 04/24/19 11:00 Respiratory Rate 16 04/24/19 11:00 Blood Pressure 147/101 04/24/19 11:00 O2 Sat by Pulse Oximetry 98 04/24/19 11:00 Temperature 98.3 F 04/24/19 11:00 Pulse Rate 80 04/24/19 14:34 Respiratory Rate 20 04/24/19 14:34 Blood Pressure 127/83 04/24/19 14:34 O2 Sat by Pulse Oximetry 99 04/24/19 14:34 Oxygen Delivery Oxygen Delivery Room Air Medical Decision Making - [facility] Narrative Medical decision making narrative: Patient has had a cholecystectomy several months ago. He is still having intermittent episodes of right-sided abdominal pain, nausea or vomiting. He follows up with gastroenterology and general surgery. He had an outpatient CT done on April 13 that showed no acute abdominal or pelvic abnormality. No gas or abscess noted where the cholecystectomy site is. He does have generalized tenderness, mildly tachycardic and appears dehydrated. We will try Zofran, IV fluids. We will repeat lab work. Patient has hemoconcentrated labs, mildly elevated total bilirubin which has been elevated in the past. Otherwise LFTs are within normal limits. No electrolyte abnormalities. He is still having persistent nausea and vomiting despite trying Phenergan, as well as IV Benadryl. He is complaining of pain and will try ketamine for the pain. We will order a second liter of IV fluids and admit the patient for intractable nausea and vomiting. 16:20 Discussed with hospitalist, Dr. Billy who accepts admission. - Medical Records Medical records reviewed: Yes I reviewed the patient's medical records. - Lab Data Lab results reviewed: Yes I reviewed the patient's lab results. Result diagrams: 04/24/19 13:14 04/24/19 13:14 Lab Results 04/24/19 04/24/19 04/24/19 Range/Units 11:45 13:14 13:14 WBC 10.7 (4.3-11.1) K/mcL RBC 5.74 H (4.19-5.50) M/mcL Hgb 17.7 H (12.9-16.9) g/dL Hct 49.5 (37.5-50.1) % MCV 86.2 (83.0-100.0) fL MCH 30.8 (28.0-33.3) pg MCHC 35.8 H (31.6-35.5) g/dL RDW 11.5 (11.5-14.5) % Plt Count 337 (140-400) K/mcL MPV 9.6 (9.4-12.4) fL Immature Gran % 0.5 (0-4) % Seg Neutrophils % 82.8 % Lymphocytes % 12.6 % Monocytes % 3.8 % Eosinophils % 0.1 % Basophils % 0.2 % Neutrophils # 8.8 (1.6-8.9) K/mcL Lymphocytes # 1.3 (0.6-4.6) K/mcL Monocytes # 0.4 (0.0-1.3) K/mcL Eosinophils # 0.0 (0.0-0.6) K/mcL Basophils # 0.0 (0.0-0.2) K/mcL Sodium 139 (136-145) mEq/L Potassium 3.9 (3.5-5.1) mEq/L Chloride 102 (98-107) mEq/L Carbon Dioxide 25 (23-29) mEq/L BUN 7 (6-20) mg/dL Creatinine 1.04 (0.70-1.30) mg/dL Est GFR ( Amer) > 60 (> 60) Est GFR (Non-Af Amer) > 60 (> 60) BUN/Creatinine Ratio 7 (6-26) Glucose 117 H (70-105) mg/dL Calculated Osmolality 287 (280-300) Calcium 11.0 H (8.6-10.3) mg/dL Total Bilirubin 1.2 H (0.3-1.0) mg/dL Direct Bilirubin 0.2 (0.0-0.2) mg/dL Indirect Bilirubin 1.0 (0.0-1.2) mg/dL AST 20 (13-39) Units/L ALT 29 (7-52) Units/L Alkaline Phosphatase 73 (34-104) Units/L Serum Total Protein 8.7 (6.4-8.9) g/dL Albumin 5.8 H (3.5-5.7) g/dL Globulin 2.9 (2.4-3.5) g/dL Albumin/Globulin Ratio 2.0 (1.1-2.2) Lipase 16 (11-82) Units/L Urine Color Yellow (Yellow) Urine Clarity Clear (Clear) Urine pH 6.0 (5.0-8.0) pH Units Ur Specific Carey 1.022 (1.010-1.025) Urine Protein Trace (Neg-Trace) mg/dL Urine Glucose (UA) Normal (Normal) mg/dL Urine Ketones Trace H (Negative) mg/dL Urine Blood Negative (Negative) Urine Nitrite Negative (Negative) Urine Bilirubin Negative (Negative) Urine Urobilinogen Normal (Normal) mg/dL Ur Leukocyte Esterase Negative (Negative) Ur Culture Indicated? NO (NO) Attestation Statement - Attestation Attestation: I, Osmin Harding, examined this patient and my medical decision-making was reviewed with the BRAND DIRECTOR/PA/Advanced Practice Nurse/Resident Physician. I agree with the documented findings, disposition and treatment plan as described except to the extent set forth below. 24-year-old male presents emergency Department with concerns of nausea and vomiting and abdominal pain. Patient states he had similar symptoms prior to return to his gallbladder removed. Since his gallbladder was removed he has had persistent pain which is being treated with tramadol. The patient ran out of his tramadol prescription yesterday and that has now had persistent nausea and vomiting, diaphoresis and lightheadedness. Patient denies recent trauma. Denies fever. He is tachycardic during the initial evaluation. He is given IV fluids which did help his tachycardia however he had persistent nausea and vomiting. He has reported allergies to multiple of the anti-emetics. Because patient has been unable to tolerate by mouth intake and be admitted for intractable nausea and vomiting.
[2019-04-24 12:03] LABS: Bilirubin,Urine Negative (Negative); Blood,Urine Negative (Negative); Clarity,Urine Clear (Clear); Color,Urine Yellow (Yellow); Glucose,Urine (UA) Normal (Normal); Ketones,Urine Trace mg/dL (Negative); Leukocyte Esterase,Urine Negative (Negative); Nitrite,Urine Negative (Negative); Protein,Urine Trace mg/dL (Neg-Trace); Specific Gravity,Urine 1.022 (1.010-1.025); Urobilinogen,Urine Normal (Normal)
[2019-04-24 13:45] LABS: Basophils % 0.2 %; Eosinophils % 0.1 %; Hematocrit 49.5 % (37.5-50.1); Hemoglobin 17.7 g/dL (12.9-16.9); Immature Granulocytes % 0.5 % (0-4); Lymphocytes # 1.3 K/mcL (0.6-4.6); Lymphocytes % 12.6 %; Mean Corpuscular HGB Conc 35.8 g/dL (31.6-35.5); Mean Corpuscular Hemoglobin 30.8 pg (28.0-33.3); Mean Corpuscular Volume 86.2 fL (83.0-100.0); Mean Platelet Volume 9.6 fL (9.4-12.4); Monocytes # 0.4 K/mcL (0.0-1.3); Monocytes % 3.8 %; Neutrophils # 8.8 K/mcL (1.6-8.9); Platelet Count 337 K/mcL (140-400); Red Blood Count 5.74 M/mcL (4.19-5.50); Red Cell Distribution Width 11.5 % (11.5-14.5); Segmented Neutrophils % 82.8 %; White Blood Count 10.7 K/mcL (4.3-11.1)
[2019-04-24 13:48] LABS: Alanine Aminotransferase 29 Units/L (7-52); Albumin 5.8 g/dL (3.5-5.7); Alkaline Phosphatase 73 Units/L (34-104); Aspartate Amino Transferase 20 Units/L (13-39); BUN/Creatinine Ratio 7 (6-26); Bilirubin,Direct 0.2 mg/dL (0.0-0.2); Bilirubin,Total 1.2 mg/dL (0.3-1.0); Blood Urea Nitrogen 7 mg/dL (6-20); Carbon Dioxide 25 mEq/L (23-29); Chloride 102 mEq/L (98-107); Globulin 2.9 g/dL (2.4-3.5); Glucose 117 mg/dL (70-105); Lipase 16 Units/L (11-82); Osmolality,Calculated 287 (280-300); Potassium 3.9 mEq/L (3.5-5.1); Sodium 139 mEq/L (136-145); Total Protein 8.7 g/dL (6.4-8.9); eGFR For African Americans > 60 (> 60); eGFR For Non-African Americans > 60 (> 60)
[2019-04-24] MEDS ORDERED: KETAMINE IVPB ONE (14:49)
[2019-04-24] MEDS ORDERED: SODIUM CHLORIDE 0.9% IVPB ONE (14:49)
[2019-04-24] MEDS ORDERED: Naloxone 0.4 MG/ML INJ IVP PRN (16:53)
--- NOTE | 2019-04-24 17:37 | Internal Med History&Physical ---
Date of Encounter: 04/24/19 Time of Encounter: 17:25 Internal Medicine - H&P: HPI Chief complaint: Nausea and vomiting Admitted From: Emergency Dept Plans for Post Hospital Care: Home History of present illness: Mr. Kaiser is a 24 year old male past medical history of gastroparesis Crohn's workup/Dr. Engel, Pilonidal disease-patient underwent laparoscopic cholecystectomy on 01/31/2019 at this facility he did not have any intraoperative or postoperative complication he was discharged home however the patient states he continued to experience right and left upper quadrant abdominal pain and nausea vomiting. He was evaluated by GI as an outpatient-it was some concerns for possible gastroparesis and was started on Reglan however patient was unable to tolerate Reglan, he did not follow-up and was placed on erythromycin however again he was unable tolerate this treatment. For the past 2 days patient has been experiencing nausea and vomiting and has not been able tolerate oral intake. He was evaluated by his primary care provider who did give him Zofran and tramadol however he this did not relieve his symptoms. He did have an outpatient CT of abdomen and pelvis with IV and oral completed on 04/13/2019 with no acute abnormality seen in abdomen or pelvis, normal-appearing appendix no obstructive uropathy colonic diverticulosis without any diverticulitis and small fat containing umbilical hernia. He presented to [facility] ED with the above complaints for was completed which did not reveal any white count and was basically unremarkable he was given IV pain medication as well as IV fluids. He has been admitted for further workup and evaluation. Currently patient does continue to complain of a sharp right upper quadrant as well as left upper quadrant pain. No aggravating or relieving factors he states the pain is not relieved with food or vomiting. He has also been vomiting nonbilious non bloody emesis. Currently he is hemodynamically stable at this time Past Med Surg Social Fam HX - Past Medical History Medical history: no medical history, GERD Additional medical history: Gastroparesis, Crohns workup w/ Dr Engel Psychiatric history: no psych history - Past Surgical History Additional surgical history: esophageal cyst sx. pilondeal cyst. wisdom teeth - Social History Smoking Status: Never smoker Smokeless Tobacco Status: No Alcohol use: none Drug use: marijuana - Family History Mother Hx Family Cancer: Yes Internal Medicine - H&P: Meds DiphenhydraMINE [Benadryl] 25 mg PO Q6HR PRN 04/24/19 [History] Ibuprofen [Ibu] 800 mg PO Q8H PRN 04/24/19 [History] Ondansetron ODT [Zofran ODT] 4 mg SL Q8H PRN 04/24/19 [History] Allergy/AdvReac Type Severity Reaction Status Date / Time haloperidol [From Haldol] AdvReac See Verified 04/24/19 11:02 Comments metoclopramide [From Reglan] AdvReac Seizure Verified 04/24/19 11:02 prochlorperazine AdvReac Unconscious Verified 04/24/19 11:02 [From Compazine] promethazine [From Phenergan] AdvReac Seizure Verified 04/24/19 11:02 All Systems PM: A 10-system review of systems was performed and is negative for pertinent findings except as documented above in the HPI. - Constitutional Constitutional: weight loss, no chills, no fever(s), no night sweats - EENT Eyes: no change in vision, no discharge, no pain, no photophobia Ears: no ear discharge, no ear pain, no tinnitus Nose, mouth and throat: no dysphagia, no nasal discharge, no neck pain, no sore throat - Cardiovascular Cardiovascular ROS IM: no chest pain, no diaphoresis, no dyspnea, no lightheadedness, no palpitations, no syncope - Respiratory Respiratory: no cough, no dyspnea, no wheezing, no excessive phlegm production - Gastrointestinal Gastrointestinal: abdominal pain, vomiting - Musculoskeletal Musculoskeletal ROS IM: no numbness, no tingling - Integumentary Integumentary IM: no rash, no unusual bruising - Neurological Neurological ROS: no confusion, no convulsions, no focal weakness, no numbness, no tingling, no tremor(s) - Hematologic/Lymphatic Hematologic/Lymphatic: no easy bruising - Constitutional Vitals: Temp Pulse Resp BP Pulse Ox 98.3 F 68 12 151/96 100 04/24/19 11:00 04/24/19 17:12 04/24/19 17:12 04/24/19 17:12 04/24/19 17:12 General appearance: Present: A&O X 3 Exam: . - Head Head exam: Present: atraumatic, normocephalic - Eye Eye exam: Present: PERRL, conjuntiva pink, sclera anicteric Pupils: Present: PERRL - Neck Neck exam general surgery: Present: supple, trachea midline. Absent: lymphadenopathy - Respiratory Respiratory exam: Present: CTAB. Absent: accessory muscle use, rales, rhonchi, wheezes - Cardiovascular Cardiovascular exam: Present: RRR, +S1, +S2. Absent: diastolic murmur, gallop, rubs, systolic murmur - GI/Abdominal GI/Abdominal exam: Present: normal bowel sounds, soft, tenderness, no peritoneal signs. Absent: distended - Extremities Exam Extremities exam: Present: warm, radial pulses palpable and symmetrical. Absent: calf tenderness, cyanotic, pedal edema - Neurological Exam Neurological exam: Present: CN II-XII intact, oriented X3, no focal deficits. Absent: pronater drift, facial droop, speech deficit - Skin Skin exam: Present: dry, intact Internal Med - H&P Results - Labs CBC & Chem 7: 04/24/19 13:14 04/24/19 13:14 Labs: Short CBC 04/24/19 Range/Units 13:14 WBC 10.7 (4.3-11.1) K/mcL Hgb 17.7 H (12.9-16.9) g/dL Hct 49.5 (37.5-50.1) % Plt Count 337 (140-400) K/mcL Neutrophils # 8.8 (1.6-8.9) K/mcL BMP 04/24/19 13:14 Sodium 139 Potassium 3.9 Chloride 102 Carbon Dioxide 25 BUN 7 Creatinine 1.04 Glucose 117 H Calcium 11.0 H Liver Function 04/24/19 Range/Units 13:14 Total Bilirubin 1.2 H (0.3-1.0) mg/dL Direct Bilirubin 0.2 (0.0-0.2) mg/dL AST 20 (13-39) Units/L ALT 29 (7-52) Units/L Alkaline Phosphatase 73 (34-104) Units/L Albumin 5.8 H (3.5-5.7) g/dL Urine 04/24/19 Range/Units 11:45 Urine Color Yellow (Yellow) Urine Clarity Clear (Clear) Urine pH 6.0 (5.0-8.0) pH Units Ur Specific [place] 1.022 (1.010-1.025) Urine Protein Trace (Neg-Trace) mg/dL Urine Glucose (UA) Normal (Normal) mg/dL - Assessment and Plan (1) DVT prophylaxis Current Visit: Yes Status: Acute Assessment and plan: SCD (2) Intractable nausea and vomiting Current Visit: Yes Status: Acute Assessment and plan: Patient has been experiencing nausea and vomiting for the past few days despite the use of antibiotics is not able tolerate any oral intake. He did have a laparoscopic cholecystectomy and intraoperative cholangiogram after experiencing acute cholecystitis on 01/31/2019. Since he has been experiencing upper abdominal pain described as sharp and nonradiating with no relieving or aggravating factors. He has been evaluated by GI as an outpatient and underwent a CT of abdomen and pelvis with contrast with nothing acute. He has been treated by GI as outpatient for possible gastroparesis and has not been tolerating treatment. On assessment his abdomen is soft with some mild tenderness and his right and left upper quadrants no guarding he does have non- bilous, nonbloody emesis no diarrhea last bowel movement was 2 days ago no hematochezia or melena-he does admit to marijuana use in the past to ease his nausea, however this was not effective and he has not used any recently. We will administer IV antibiotics Intake patient is nothing by mouth We will give oxycodone for pain GI consult has been placed-day team to follow-up with phone call We will check a tox screen Qualifiers: Vomiting type: unspecified Qualified Code(s): R11.2 - Nausea with vomiting, unspecified (3) Abdominal pain Current Visit: No Status: Acute Assessment and plan: CT of abdomen and pelvis on 04/13/2019 shows nothing acute-he has been treated as an outpatient per Dr. Engel for possible gastroparesis and was allergic to Reglan and did not tolerate erythromycin according to the patient We will continue with pain medication oxycodone Maintain patient nothing by mouth Consult GI Qualifiers: Abdominal location: right upper quadrant Qualified Code(s): R10.11 - Right upper quadrant pain - Time Spent With Patient Total time spent is greater than 50% in coordination of care (as documented) at patient's floor/unit and/or counseling patient:
[2019-04-24] MEDS: Ondansetron 4 MG/2 ML VIAL IVP PRN (20:08)
[2019-04-24 20:46] LABS: Amphetamine Screen,Urine Negative ng/mL (Cutoff=1000); Barbiturate Screen,Urine Negative ng/mL (Cutoff=200); Benzodiazepines Screen,Urine Negative ng/mL (Cutoff=200); Cannabinoid Screen,Urine Positive ng/mL (Cutoff = 50); Cocaine Screen,Urine Negative ng/mL (Cutoff= 300); Opiate Screen,Urine Negative ng/mL (Cutoff=300); Phencyclidine Screen,Urine Negative ng/mL (Cutoff=25)
[2019-04-24] MEDS: 0.9 % Sodium Chloride 1,000 ML IVC SCH (20:58)
[2019-04-24] MEDS ORDERED: *HR* HYDROmorphone (PF) 1 MG/ML SYRINGE IVP ONE (21:17)
[2019-04-25] MEDS: Ondansetron 4 MG/2 ML VIAL IVP PRN ×3 (03:07→15:49)
[2019-04-25] MEDS ORDERED: Acetaminophen IV 1,000 MG/100 ML INFUS..BTL IVPB ONE ×2 (03:21→11:28)
[2019-04-25] MEDS ORDERED: *HR* HYDROmorphone (PF) 1 MG/ML SYRINGE IVP ONE ×2 (03:23→08:22)
[2019-04-25 05:28] LABS: Basophils % 0.2 %; Eosinophils % 0.3 %; Hematocrit 37.9 % (37.5-50.1); Immature Granulocytes % 0.2 % (0-4); Lymphocytes # 2.1 K/mcL (0.6-4.6); Lymphocytes % 22.1 %; Mean Corpuscular HGB Conc 35.6 g/dL (31.6-35.5); Mean Corpuscular Volume 87.1 fL (83.0-100.0); Mean Platelet Volume 9.6 fL (9.4-12.4); Monocytes # 0.6 K/mcL (0.0-1.3); Monocytes % 6.3 %; Neutrophils # 6.6 K/mcL (1.6-8.9); Platelet Count 260 K/mcL (140-400); Red Blood Count 4.35 M/mcL (4.19-5.50); Red Cell Distribution Width 11.2 % (11.5-14.5); Segmented Neutrophils % 70.9 %; White Blood Count 9.4 K/mcL (4.3-11.1)
--- NOTE | 2019-04-25 05:36 | Event Note ---
Date of Encounter: 04/24/19 Time of Encounter: 21:03 Alerted by pts. nurse CAMERON Johnson that the pt. had been given his SL oxycodone and was now vomiting. Patient stated SL oxycodone is not helping his pain of 8-9/10. Discussed pt. w/Pharmacy for one-time dose of IVP Dilaudid 1 mg. Patient received second dose of SL oxycodone at 03:05 and began vomiting again. Patient states it now made his pain worse. Patient now reports headache from vomiting. IVPB Ofirmev ordered for headache. Additional one-time dose of IVP Dilaudid 1 mg ordered. 04:03 patient reports his pain is better and he is able to rest. SL oxycodone DCd. Nurse instructed to continue monitoring the pt. closely and alert me immediately of any adverse changes.
[2019-04-25 05:44] LABS: BUN/Creatinine Ratio 8 (6-26); Blood Urea Nitrogen 7 mg/dL (6-20); Carbon Dioxide 24 mEq/L (23-29); Chloride 104 mEq/L (98-107); Glucose 112 mg/dL (70-105); Magnesium 1.7 mg/dL (1.6-2.6); Osmolality,Calculated 285 (280-300); Phosphorous 2.7 mg/dL (2.7-4.5); Potassium 3.4 mEq/L (3.5-5.1); Sodium 138 mEq/L (136-145); eGFR For African Americans > 60 (> 60); eGFR For Non-African Americans > 60 (> 60)
[2019-04-25 05:50] LABS: Hemoglobin 13.5 g/dL (12.9-16.9)
[2019-04-25] MEDS: 0.9 % Sodium Chloride 1,000 ML IVC SCH ×2 (08:23→13:26)
[2019-04-25] MEDS ORDERED: Potassium Chloride 20 MEQ, Lidocaine 1% 2 ML in 0.9 % Sodium Chloride 250 ML IVPB ONE (08:30)
--- NOTE | 2019-04-25 08:54 | Internal Med Progress Note ---
Hospitalist Progress Note - Encounter Date of Encounter: 04/25/19 Time of Encounter: 08:50 - Subjective Interval History: Was seen and examined at bedside he continues to complain 8/ 10 abdominal pain as well as nausea he has been given narcotics overnight-GI has been consulted and has been notified of consult. Informed patient that he will receive 1 more dose of pain medication and and GI will evaluate him he verbalizes understanding - Exam Vitals: Temp Pulse Resp BP Pulse Ox 97.7 F 96 20 121/76 97 04/25/19 07:34 04/25/19 07:34 04/25/19 07:34 04/25/19 07:34 04/25/19 07:34 Exam: Skin: Free of rash and discoloration. Eyes: Sclera is white. There is no discharge from eyes. ENMT: Oral/pharyngeal mucosa is normal in appearance. There is no discharge from nose or ears. Respiratory: Normal breath sounds with no crackles and wheezes bilaterally. CV: Heart is regular with no gallop or murmur. GI: Abdomen is flat and soft with no palpable mass or visceromegaly-diffuse tenderness on palpation. : There is no tenderness in patient's flanks bilaterally. Neuro exam: He has good strength in upper and lower extremities. He has normal eye movements. Psychiatric: He has normal affect. His thought process is appropriate to the situation. - Assessment and Plan (1) DVT prophylaxis Current Visit: Yes Status: Acute Assessment and Plan: SCD (2) Intractable nausea and vomiting Current Visit: Yes Status: Acute Assessment and Plan: Patient has been experiencing nausea and vomiting for the past few days despite the use of antibiotics is not able tolerate any oral intake. He did have a laparoscopic cholecystectomy and intraoperative cholangiogram after experiencing acute cholecystitis on 01/31/2019. Since he has been experiencing upper abdominal pain described as sharp and nonradiating with no relieving or aggrav ating factors. He has been evaluated by GI as an outpatient and underwent a CT of abdomen and pelvis with contrast with nothing acute. He has been treated by GI as outpatient for possible gastroparesis and has not been tolerating treatment. On assessment his abdomen is soft with some mild tenderness and his right and left upper quadrants no guarding he does have non-bilous, nonbloody emesis no diarrhea last bowel movement was 2 days ago no hematochezia or melena- he does admit to marijuana use in the past to ease his nausea, however this was not effective and he has not used any recently. We will administer IV antibiotics Intake patient is nothing by mouth We will give oxycodone for pain GI consult has been placed-day team to follow-up with phone call We will check a tox screen 04/25 He continues to experience nausea vomiting abdominal pain We will continue with antiemetics as well as IV fluids Narcotics are not appropriate choice for gastroparesis treatment-he has received Reglan and erythromycin without improvement. GIs consulted and appreciate recommendations (3) Abdominal pain Current Visit: No Status: Acute Assessment and Plan: CT of abdomen and pelvis on 04/13/2019 shows nothing acute-he has been treated as an outpatient per Dr. Engel for possible gastroparesis and was allergic to Reglan and did not tolerate erythromycin according to the patient We will continue with pain medication oxycodone Maintain patient nothing by mouth Consult GI 04/25 We will give 1 more dose of Dilaudid-then we will give Ofirmev-narcotics are not appropriate for gastroparesis Continue nothing by mouth and IV fluids Consult to GI-discuss case this a.m. with GI - Time Spent with Patient Total time spent is greater than 50% in coordination of care (as documented) at patient's floor/unit and/or counseling patient: Internal Medicine: Result - Labs CBC & Chem 7: 04/25/19 05:07 04/25/19 05:07 Labs: Short CBC 04/24/19 04/25/19 Range/Units 13:14 05:07 WBC 10.7 9.4 (4.3-11.1) K/mcL Hgb 17.7 H 13.5 D (12.9-16.9) g/dL Hct 49.5 37.9 (37.5-50.1) % Plt Count 337 260 (140-400) K/mcL Neutrophils # 8.8 6.6 (1.6-8.9) K/mcL BMP 04/24/19 04/25/19 13:14 05:07 Sodium 139 138 Potassium 3.9 3.4 L Chloride 102 104 Carbon Dioxide 25 24 BUN 7 7 Creatinine 1.04 0.91 Glucose 117 H 112 H Calcium 11.0 H 9.0 Liver Function 04/24/19 Range/Units 13:14 Total Bilirubin 1.2 H (0.3-1.0) mg/dL Direct Bilirubin 0.2 (0.0-0.2) mg/dL AST 20 (13-39) Units/L ALT 29 (7-52) Units/L Alkaline Phosphatase 73 (34-104) Units/L Albumin 5.8 H (3.5-5.7) g/dL Urine 04/24/19 Range/Units 11:45 Urine Color Yellow (Yellow) Urine Clarity Clear (Clear) Urine pH 6.0 (5.0-8.0) pH Units Ur Specific [place] 1.022 (1.010-1.025) Urine Protein Trace (Neg-Trace) mg/dL Urine Glucose (UA) Normal (Normal) mg/dL Consult Discharge Plan - Plan Referrals: Salty Wise, [facility] [Primary Care Provider] - (2) Intractable nausea and vomiting Qualifiers: Vomiting type: unspecified Qualified Code(s): R11.2 - Nausea with vomiting, unspecified (3) Abdominal pain Qualifiers: Abdominal location: right upper quadrant Qualified Code(s): R10.11 - Right upper quadrant pain
[2019-04-25] MEDS: Pantoprazole 40 MG VIAL IVP SCH (09:25)
--- NOTE | 2019-04-25 11:51 | Gastroenterology Consult Note ---
<Maritza Chatterjee - Last Filed: 04/25/19 15:18> Date of Encounter: 04/25/19 Time of Encounter: 11:48 - Assessment and plan (1) Intractable nausea and vomiting Current Visit: Yes Status: Acute Assessment and plan: Presented to the ED due to complaining of nausea and emesis worsened in the past a few days Reports anorexia due to the nausea with diffuse abdominal pain States history of nausea and emesis with feeling of food stuck in his lower esophagus for close to a year Reports stopping marijuana for 1.5 months due to concern of marijuana induced emesis and states no relief Underwent EGD which did not show concerning for gastroparesis Pylorus was injected with botulinum toxin, additionally underwent dilation of t he esophagus Biopsies were take to rule out H.pylori Will order tissue transglutaminase to rule out celiac disease Progress to full liquid diet Further recommendations by Dr. Engel Qualifiers: Vomiting type: unspecified Qualified Code(s): R11.2 - Nausea with vomiting, unspecified - Time Spent With Patient Total time spent is greater than 50% in coordination of care (as documented) at patient's floor/unit and/or counseling patient: GI History of Present Illness - Data of Consult Requesting Physician: Luke Billy - Consult Narrative History of present illness: Mr. Kaiser is a 24 year old male with past medical history of gastroparesis who recently underwent laparoscopic cold cystectomy on 01/21/19 presented to the ED complaining of ongoing nausea and emesis. He is reporting these episodes have b een ongoing for over a year additionally associated with abdominal pain. 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 Reports the nausea has been ongoing for close to a year but the emesis started about three days ago. He is unable to tolerate oral intake due to the nausea. He had an outpatient CT of abdomen and pelvis with oral and IV contrast on 04/13/19 with no acute abnormality seen in abdomen or pelvis, normal appearing appendix but diverticulosis was seen. He reports previously he was asked to stop marijuana for concern of marijuana induced emesis and he stopped for 1.5 months without any resolution for the nasuea or emesis so he restarted marijuana. At presentation he was hemodynamically stable. This morning he reports ongoing nausea unable to intake anything and reports if he does even drink water he feels regurgitation of the contents. He is also eliciting some abdominal pain. Denies fever, chills, chest pain or shortness of breath. Past Med Surg Social Fam HX - Past Medical History Medical history: no medical history, GERD Additional medical history: Gastroparesis, Crohns workup w/ Dr Engel Psychiatric history: no psych history - Past Surgical History Additional surgical history: esophageal cyst sx. pilondeal cyst. wisdom teeth - Social History Smoking Status: Never smoker Smokeless Tobacco Status: No Alcohol use: none Drug use: marijuana - Family History Mother Hx Family Cancer: Yes - Gastrointestinal Gastrointestinal: Present: abdominal pain (diffuse), nausea, vomiting. Absent: diarrhea - Constitutional Constitutional: no fatigue, no weight loss - EENT Nose, mouth and throat: Absent: dysphagia, hoarseness, sore throat - Cardiovascular Cardiovascular ROS: Absent: chest pain, irregular heart rhythm, palpitations - Respiratory Respiratory IM: Absent: cough, dyspnea, wheezing - Neurological ROS Neurological GI: Absent: frequent falls, headache(s), tremor(s) - Hematologic/Lymphatic Hematologic/Lymphatic pediatric: Absent: easy bleeding - Musculoskeletal Musculoskeletal ROS GI: Absent: back pain - Integumentary Integumentary GI: Absent: pruritis, rash - Constitutional Vitals: Temp Pulse Resp BP Pulse Ox 97.8 F 77 20 122/75 97 04/25/19 10:45 04/25/19 10:45 04/25/19 10:45 04/25/19 10:45 04/25/19 10:45 General appearance: Present: A&O X 3, pleasant, no acute distress - Head Head exam: Present: atraumatic, normal inspection - Eye Eye exam: Present: EOMI. Absent: conjunctival injection, sclera anicteric - ENT ENT exam: Present: mucous membranes moist, normal oropharynx - Neck Neck exam general surgery: Present: full ROM, trachea midline - Respiratory Respiratory exam: Present: CTAB. Absent: rhonchi, wheezes - Cardiovascular Cardiovascular exam: Present: RRR, +S1, +S2 - GI/Abdominal GI/Abdominal exam: Present: soft, tenderness (mild tenderness in left upper quadrant). Absent: firm - Psychiatric Psychiatric exam: Present: anxious, flat affect - Skin Skin exam: Present: dry, intact Results - Labs CBC & Chem 7: 04/25/19 05:07 04/25/19 05:07 Labs: Last Result 04/25/19 05:07 Calcium 9.0 Entire Visit 04/25/19 05:07 Hgb 13.5 D Hct 37.9 Consult Discharge Plan - Plan Referrals: Salty Wise, [facility] [Primary Care Provider] - <MarenMargaretNancy - Last Filed: 04/25/19 18:32> Date of Encounter: 04/25/19 Time of Encounter: 12:00 - Time Spent With Patient Total time spent is greater than 50% in coordination of care (as documented) at patient's floor/unit and/or counseling patient: GI History of Present Illness - Data of Consult Requesting Physician: Luke Billy - Consult Narrative History of present illness: Mr. Kaiser is a 24 year old male - Constitutional Vitals: Temp Pulse Resp BP Pulse Ox 98.1 F 80 20 119/76 96 04/25/19 16:04 04/25/19 16:04 04/25/19 16:04 04/25/19 16:04 04/25/19 16:04 Results - Labs CBC & Chem 7: 04/25/19 05:07 04/25/19 05:07 - Attending Attestation I have personally performed a face to face evaluation on this patient. I have reviewed and agree with the care plan. History and Exam by me shows: Pt seen complaining of dysphagia and also abdominal pain. Exam : abdomen is soft but does has mild upper abdominal tenderness. Assessment: Patient with a history of esophageal surgery for possible cyst as a child now has dysphagia and also has symptom of gastroparesis. Recommendation: EGD with possible dilation also we will do a Botox of the pylorus because of his continued symptom and not responding to medications including Reglan
[2019-04-25] MEDS ORDERED: *HR* Propofol 200 MG/20 ML VIAL IVP ONE ×4 (12:31→12:56)
[2019-04-25] MEDS ORDERED: Lidocaine -MPF 2% 2 ML VIAL ONE (12:36)
--- NOTE | 2019-04-25 12:37 | Anesthesia Evaluation PreOp ---
Date of Encounter: 04/25/19 Time of Encounter: 12:35 - Past History Planned Operation: EGD Cardiac History: Denies any Significant Hx Pulmonary History: Smoker FILM INSPECTOR History: Denies Any Significant HX Other Medical History: GERD, Other (Crohn's?, gastroparesis, abdominal pain with nausea) Anesthesia History: No Prior Anesthetic Complications, Past Anesthesia Alcohol Use: none Drug use: marijuana Medications and Allergies DiphenhydraMINE [Benadryl] 25 mg PO Q6HR PRN 04/24/19 [History] Ibuprofen [Ibu] 800 mg PO Q8H PRN 04/24/19 [History] Ondansetron ODT [Zofran ODT] 4 mg SL Q8H PRN 04/24/19 [History] Allergy/AdvReac Type Severity Reaction Status Date / Time haloperidol [From Haldol] AdvReac See Verified 04/24/19 11:02 Comments metoclopramide [From Reglan] AdvReac Seizure Verified 04/24/19 11:02 prochlorperazine AdvReac Unconscious Verified 04/24/19 11:02 [From Compazine] promethazine [From Phenergan] AdvReac Seizure Verified 04/24/19 11:02 - Meds/Allergy Pre-op Review Medications Reviewed: Yes Allergies Reviewed: Yes Beta Blockers on Current Med List: No Anesthesia Results - Labs 04/25/19 05:07 04/25/19 05:07 - Imaging EKG: report reviewed Anesthesia Exam Vital Signs/O2 Sat/Glucose, Most Recent Temp Pulse Resp BP Pulse Ox 97.8 F 77 20 122/75 97 04/25/19 10:45 04/25/19 10:45 04/25/19 10:45 04/25/19 10:45 04/25/19 10:45 Blood Glucose* 105 Weight: 92 kg NPO (# of Hours): > 8 hr - HEENT Pupil (Motor): Pupils equal Mallampati: II Teeth: Normal Oral Opening: Greater than 3 - FILM INSPECTOR LOC: Oriented FILM INSPECTOR Motor: Normal RUE, Normal LUE, Normal RLE, Normal LLE, Normal Face FILM INSPECTOR Sensory: Normal: RUE, LUE, RLE, LLE, Face - Cardiac Rhythm: Regular Murmur: None - Pulmonary Breath Sounds: bilateral Clear Respiratory Effort: Symmetrical Anesthesia Assess/Plan ASA Score: 2 Level of consciousness: Cooperative, Oriented Anesthetic Plan: MAC Monitoring Plan: Standard Monitors Recovery Plan: PACU
--- NOTE | 2019-04-25 14:51 | Anesthesia Evaluation Post Op ---
Date of Encounter: 04/25/19 Time of Encounter: 14:51 - Vital Signs Vital Signs: Vital Signs/O2 Sat/Glucose, Most Recent Temp Pulse Resp BP Pulse Ox 97.8 F 79 18 137/69 96 04/25/19 13:20 04/25/19 13:20 04/25/19 13:20 04/25/19 13:20 04/25/19 13:20 Blood Glucose* 105 - Lungs Lungs: Clear Ascult./Percussion - Airway Airway: Non-obstructed - Cardiovascular Regular Rate - Mental Status Mental Status: Alert & Oriented, Answers Appropriately - Pain Pain Scale: 0 - Nausea Vomiting Nausea Vomiting: Not Present - Hydration Hydration: NPO - Discharge PostOp Status: Transfer Patient to floor
[2019-04-25] MEDS ORDERED: GI Cocktail 40 ML EACH PO ONE (17:39)
[2019-04-25] MEDS ORDERED: Acetaminophen IV 500 MG/50 ML INFUS..BTL IVPB ONE (20:53)
[2019-04-26] MEDS: Melatonin 3 MG TABLET PO PRN (01:13)
[2019-04-26] MEDS: Ondansetron 4 MG/2 ML VIAL IVP PRN ×4 (02:20→15:58)
[2019-04-26] MEDS ORDERED: Acetaminophen IV 500 MG/50 ML INFUS..BTL IVPB ONE (03:57)
[2019-04-26] MEDS: Pantoprazole 40 MG VIAL IVP SCH (08:05)
[2019-04-26] MEDS: 0.9 % Sodium Chloride 1,000 ML IVC SCH (09:30)
[2019-04-26] MEDS ORDERED: *HR* LORazepam 2 MG/ML VIAL IVP ONE (10:20)
[2019-04-26] MEDS: *HR* LORazepam Oral Conc 2 MG/ML PO PRN ×2 (13:30→21:57)
--- NOTE | 2019-04-26 16:59 | Internal Med Progress Note ---
Hospitalist Progress Note - Encounter Date of Encounter: 04/26/19 Time of Encounter: 09:00 - Subjective Interval History: Patient was seen and examined at bedside. He still complaining about abdominal pain and asking for only IV pain medication Dilaudid still have bilious vomitings not tolerating oral intake well. However after I gave him Ativan x 1 dose, he slept through all day - Exam Vitals: Temp Pulse Resp BP Pulse Ox 98.9 F 105 15 128/81 99 04/26/19 14:11 04/26/19 14:11 04/26/19 14:11 04/26/19 14:11 04/26/19 14:11 Exam: Gen: Alert, awake, Oriented to time,place and person Chest: Diminished breath sounds B/L, No wheezing, No crackles, No rales Heart: S1S2+ RRR No murmurs Abd: Soft, discomfort in all over the abdomen, BS +, No organomegaly, no guar ding/ no rigidity Ext: No edema, pulses are palpable, No calf tenderness Neuro : No acute focal neuro deficits noticed Skin: No rash. - Assessment and Plan (1) Abdominal pain Current Visit: No Status: Acute Assessment and Plan: CT of abdomen and pelvis on 04/13/2019 shows nothing acute-he has been treated as an outpatient per Dr. Engel for possible gastroparesis and was allergic to Reglan and did not tolerate erythromycin according to the patient unclear etiology seems to be patient does have some drug seeking behavior s/p EGD - WNL d/c pain medications started him on Ativan PO PRN counseled the pt about pain medications (2) Intractable nausea and vomiting Current Visit: Yes Status: Acute Assessment and Plan: s/p EGD - WNL cont symptomatic and supportive care will try to advance his diet however patient is refusing to advance his diet now (3) DVT prophylaxis Current Visit: Yes Status: Acute Assessment and Plan: SCD (4) Substance abuse Current Visit: Yes Status: Acute Assessment and Plan: UDS positive for Marijuana however patient denied of using marijuana the last 3 months pt is requesting for medical marijuana treatment - Time Spent with Patient Total time spent is greater than 50% in coordination of care (as documented) at patient's floor/unit and/or counseling patient: Internal Medicine: Result - Labs CBC & Chem 7: 04/25/19 05:04/25/19 05:07 Consult Discharge Plan - Plan Referrals: Salty Wise, TRACTOR MECHANIC HELPER [Primary Care Provider] - (1) Abdominal pain Qualifiers: Abdominal location: right upper quadrant Qualified Code(s): R10.11 - Right upper quadrant pain (2) Intractable nausea and vomiting Qualifiers: Vomiting type: unspecified Qualified Code(s): R11.2 - Nausea with vomiting, unspecified
[2019-04-26] MEDS: Ketorolac 30 MG/ML VIAL IVP PRN (22:22)
[2019-04-27] MEDS: Ketorolac 30 MG/ML VIAL IVP PRN ×2 (04:04→10:10)
[2019-04-27] MEDS: Ondansetron 4 MG/2 ML VIAL IVP PRN ×2 (06:13→11:42)
[2019-04-27 06:25] LABS: Alanine Aminotransferase 18 Units/L (7-52); Albumin 5.1 g/dL (3.5-5.7); Albumin/Globulin Ratio 2.2 (1.1-2.2); Alkaline Phosphatase 66 Units/L (34-104); Aspartate Amino Transferase 14 Units/L (13-39); BUN/Creatinine Ratio 8 (6-26); Blood Urea Nitrogen 9 mg/dL (6-20); Calcium 10.4 mg/dL (8.6-10.3); Carbon Dioxide 31 mEq/L (23-29); Chloride 101 mEq/L (98-107); Globulin 2.3 g/dL (2.4-3.5); Glucose 111 mg/dL (70-105); Osmolality,Calculated 299 (280-300); Potassium 3.4 mEq/L (3.5-5.1); Sodium 145 mEq/L (136-145); Total Protein 7.4 g/dL (6.4-8.9); eGFR For African Americans > 60 (> 60); eGFR For Non-African Americans > 60 (> 60)
[2019-04-27] MEDS: *HR* LORazepam Oral Conc 2 MG/ML PO PRN (06:40)
[2019-04-27] MEDS: Pantoprazole 40 MG VIAL IVP SCH (07:13)
[2019-04-27] MEDS: *HR* LORazepam 2 MG/ML VIAL IVP PRN ×2 (14:47→23:57)
--- NOTE | 2019-04-27 15:13 | Internal Med Progress Note ---
Hospitalist Progress Note - Encounter Date of Encounter: 04/27/19 Time of Encounter: 15:11 - Subjective Interval History: Patient was seen and examined at bedside. He still complaining about abdominal pain and asking for only IV pain medication Dilaudid still have bilious vomitings and unable to hold any thing down not tolerating oral intake well - Exam Vitals: Temp Pulse Resp BP Pulse Ox 98.1 F 111 14 116/79 95 04/27/19 14:11 04/27/19 14:11 04/27/19 14:11 04/27/19 14:11 04/27/19 14:11 Exam: Gen: Alert, awake, Oriented to time,place and person Chest: Diminished breath sounds B/L, No wheezing, No crackles, No rales Heart: S1S2+ RRR No murmurs Abd: Soft, discomfort in all over the abdomen, BS +, No organomegaly, no guarding/ no rigidity Ext: No edema, pulses are palpable, No calf tenderness Neuro : No acute focal neuro deficits noticed Skin: No rash. - Assessment and Plan (1) Intractable nausea and vomiting Current Visit: Yes Status: Acute Assessment and Plan: s/p EGD - WNL he still have intractable bilious vomitings unable to tolerate PO intake cont symptomatic and supportive care however patient is refusing to advance his diet now He might have severe gastroparesis talked to our GI Dr. Engel, who recommend pt may get benefit with GI eval at [facility] Reached out to [facility] transfer center.. Waiting on bed availability. Patient does need to stay in the hospital more than 2 midnights due to his complex medical problems and unable to tolerate PO intake. So we will change him to full admission today. I did review my colleague PRIMARY CARE MD Flea Agudelo's H & P including HPI, PMH, PSH, FH, SH, and ROS no changes noticed (2) Abdominal pain Current Visit: No Status: Acute Assessment and Plan: CT of abdomen and pelvis on 04/13/2019 shows nothing acute-he has been treated as an outpatient per Dr. Engel for possible gastroparesis and was allergic to Reglan and did not tolerate erythromycin according to the patient unclear etiology seems to be patient does have some drug seeking behavior However he still continue to have intractable vomiting so it could be due to gastroparesis s/p EGD - WNL d/c pain medications Cont him on Ativan PO PRN counseled the pt about pain medications (3) DVT prophylaxis Current Visit: Yes Status: Acute Assessment and Plan: SCD (4) Substance abuse Current Visit: Yes Status: Acute Assessment and Plan: UDS positive for Marijuana however patient denied of using marijuana the last 3 months pt is requesting for out pt medical marijuana treatment - Time Spent with Patient Total time spent is greater than 50% in coordination of care (as documented) at patient's floor/unit and/or counseling patient: Internal Medicine: Result - Labs CBC & Chem 7: 04/25/19 05:07 04/27/19 05:47 Labs: BMP 04/27/19 05:47 Sodium 145 Potassium 3.4 L Chloride 101 Carbon Dioxide 31 H BUN 9 Creatinine 1.14 Glucose 111 H Calcium 10.4 H Liver Function 04/27/19 Range/Units 05:47 Total Bilirubin 1.0 (0.3-1.0) mg/dL AST 14 (13-39) Units/L ALT 18 (7-52) Units/L Alkaline Phosphatase 66 (34-104) Units/L Albumin 5.1 (3.5-5.7) g/dL Consult Discharge Plan - Plan Referrals: Salty Wise, GARDEN CONSULTANT [Primary Care Provider] - (1) Intractable nausea and vomiting Qualifiers: Vomiting type: unspecified Qualified Code(s): R11.2 - Nausea with vomiting, unspecified (2) Abdominal pain Qualifiers: Abdominal location: right upper quadrant Qualified Code(s): R10.11 - Right upper quadrant pain
[2019-04-27] MEDS: D5% in 0.45% NACL w KCl 20 MEQ/1,000 ML MLS IVC SCH (15:54)
[2019-04-27] MEDS: Melatonin 3 MG TABLET PO PRN (22:59)
[2019-04-28] MEDS: D5% in 0.45% NACL w KCl 20 MEQ/1,000 ML MLS IVC SCH ×2 (02:33→14:31)
[2019-04-28] MEDS: *HR* Enoxaparin 40 MG/0.4 ML SYRINGE SQ SCH (05:09)
[2019-04-28] MEDS: Ondansetron 4 MG/2 ML VIAL IVP PRN ×2 (05:59→22:06)
[2019-04-28 06:13] LABS: BUN/Creatinine Ratio 7 (6-26); Blood Urea Nitrogen 7 mg/dL (6-20); Calcium 9.7 mg/dL (8.6-10.3); Carbon Dioxide 28 mEq/L (23-29); Chloride 103 mEq/L (98-107); Glucose 128 mg/dL (70-105); Osmolality,Calculated 292 (280-300); Phosphorous 3.6 mg/dL (2.7-4.5); Potassium 3.2 mEq/L (3.5-5.1); Sodium 141 mEq/L (136-145); eGFR For African Americans > 60 (> 60); eGFR For Non-African Americans > 60 (> 60)
[2019-04-28] MEDS: Pantoprazole 40 MG VIAL IVP SCH (08:09)
[2019-04-28] MEDS ORDERED: Acetaminophen IV 1,000 MG/100 ML INFUS..BTL IVPB ONE (09:37)
--- NOTE | 2019-04-28 09:58 | Internal Med Progress Note ---
<Joycelyn Garcia I - Last Filed: 04/28/19 13:21> Hospitalist Progress Note - Encounter Date of Encounter: 04/28/19 Time of Encounter: 09:30 - Subjective Interval History: Today patient is seen and examined . he says he has continuos nausea and vomiting all the time . also abdominal pain and diarrhea about 4 days a day . he is anxious and says no body talk to him or tells him whats the plan . he said he has generalized pain every where and describes it as a train hits me 5 times . no fever but sweating is positive . no SOB . No change in urination . - Exam Vitals: Temp Pulse Resp BP Pulse Ox 98.5 F 83 15 120/79 96 04/28/19 08:17 04/28/19 08:17 04/28/19 08:17 04/28/19 08:17 04/28/19 08:17 Exam: Gen: Alert, awake, Oriented to time,place and person Chest: Normal breath sound bilaterally . No wheezing, No crackles, No rales Heart: S1S2+ RRR No murmurs Abd: Soft, discomfort in all over the abdomen, BS +, No organomegaly, no guardi ng/ no rigidity Ext: No edema, pulses are palpable, No calf tenderness Neuro : No acute focal neuro deficits noticed Skin: No rash. - Assessment and Plan (1) Intractable nausea and vomiting Current Visit: Yes Status: Acute Assessment and Plan: Patient says he has no life with continuos nausea and vomiting , seems to be patient does have some drug seeking behavior. He is unable to tolerate any oral intake he did not respond to reglan or zofran he is on ativan and diphyenhydramine for nausea as PRN Underwent EGD which did not show concerning for gastroparesis Pylorus was injected with botulinum toxin, additionally underwent dilation of the esophagus Biopsies were take to rule out H.pylori gastric empty test tomorrow Reached out to [facility].. Waiting on bed availability. (2) Diarrhea Current Visit: No Status: Acute Assessment and Plan: patient had 4 attacks of diarrhea today . lactobacillus and loperamide ordered (3) Cannabinoid hyperemesis syndrome Current Visit: Yes Status: Acute Assessment and Plan: Patient present with intractable nausea and vomiting patient is a known case of Marijuana abuse drug toxi positive for Marijuana - Time Spent with Patient Total time spent is greater than 50% in coordination of care (as documented) at patient's floor/unit and/or counseling patient: Internal Medicine: Result - Labs CBC & Chem 7: 04/25/19 05:07 04/28/19 05:27 Labs: BMP 04/28/19 05:27 Sodium 141 Potassium 3.2 L Chloride 103 Carbon Dioxide 28 BUN 7 Creatinine 1.05 Glucose 128 H Calcium 9.7 Consult Discharge Plan - Plan Referrals: Salty Wise, FAMILY PRACTICE NURSE PRACTITIONER [Primary Care Provider] - <Tootie Quiñones - Last Filed: 04/28/19 13:39> Hospitalist Progress Note - Encounter Date of Encounter: 04/28/19 Time of Encounter: 09:10 - Subjective Interval History: Patient remains anxious. Complains of abdominal pain. Is upset that his Ativan was held this morning. He complains of pain all over his body. Continues to have nausea and vomiting and also reports diarrhea. Fever or chills reported overnight. Has not tolerated any diet so far. - Exam Vitals: Temp Pulse Resp BP Pulse Ox 98.6 F 94 15 117/73 96 04/28/19 12:21 04/28/19 12:21 04/28/19 12:21 04/28/19 12:21 04/28/19 12:21 Exam: General: Patient is alert, mild distress, oriented x 3 Respiratory: Good respiratory effort. Normal breath sounds. No wheezing or crackles. Cardiovascular: Regular rate and rhythm. s1 and s2 normal No clicks, rubs, gallops, or murmurs. No pedal edema Abdomen: Abdomen is soft, mild epigastric tenderness. Bowel sounds are present Musculoskeletal: Spontaneously moving all extremities Skin: warm, dry, intact. Psych: Anxious - Assessment and Plan (1) Intractable nausea and vomiting Current Visit: Yes Status: Acute (2) Abdominal pain Current Visit: Yes Status: Acute (3) DVT prophylaxis Current Visit: Yes Status: Acute (4) Substance abuse Current Visit: Yes Status: Acute - Time Spent with Patient Total time spent is greater than 50% in coordination of care (as documented) at patient's floor/unit and/or counseling patient: Internal Medicine: Result - Labs CBC & Chem 7: 04/25/19 05:07 04/28/19 05:27 Labs: BMP 09/06/19 05:27 Sodium 141 Potassium 3.2 L Chloride 103 Carbon Dioxide 28 BUN 7 Creatinine 1.05 Glucose 128 H Calcium 9.7 - Attending Attestation I saw evaluated and examined this patient and reviewed objective data including labs and my medical decision-making was reviewed with the Resident Physician, Joycelyn Garcia. I agree with the documented findings, disposition and treatment plan as described except to any changes set forth below. We independently had [id number] contact with the patient. Patient being treated for gastroparesis. Underwent EGD with dilatation and bot toxin injection. Has not had any response to it yet. Gastric emptying study was ordered but has been held for today because patient received PPI. Will reattempt tomorrow. Continue to hold pain medications and PPI in anticipation for testing. Will again call [facility] once testing is completed tomorrow. Replete electrolytes. Resume Ativan as this seems to be helping him with his anxiety. Minimize use. Continue Benadryl for nausea as patient states that this has helped him in the past. Patient definitely has a psychiatric component to his current symptoms. He needs to follow-up with psychiatry after discharge for better management of his anxiety. He denies marijuana use but his urine drug screen was positive indicating recent use. May have underlying cannabinoid hyperemesis syndrome. <Joycelyn Garcia I - Last Filed: 04/28/19 13:21> (1) Intractable nausea and vomiting Qualifiers: Vomiting type: unspecified Qualified Code(s): R11.2 - Nausea with vomiting, unspecified (2) Diarrhea Qualifiers: Diarrhea type: unspecified type Qualified Code(s): R19.7 - Diarrhea, unspecified <Tootie Quiñones - Last Filed: 04/28/19 13:39> (1) Intractable nausea and vomiting Qualifiers: Vomiting type: unspecified Qualified Code(s): R11.2 - Nausea with vomiting, unspecified (2) Abdominal pain Qualifiers: Abdominal location: right upper quadrant Qualified Code(s): R10.11 - Right upper quadrant pain
[2019-04-28 10:19] LABS: Tissue Transglutaminase IgA 0 U/mL (0-3)
[2019-04-28] MEDS: Lactobacillus 1 EACH CAP.SPRINK PO SCH ×2 (10:35→22:07)
[2019-04-28] MEDS: *HR* LORazepam 2 MG/ML VIAL IVP PRN ×2 (14:34→22:06)
[2019-04-28] MEDS: Potassium Chloride 40 MEQ in D5% in 0.45% NACL 1,000 ML IVC SCH (14:34)
[2019-04-28] MEDS: Melatonin 3 MG TABLET PO PRN (22:07)
[2019-04-29] MEDS: Ondansetron 4 MG/2 ML VIAL IVP PRN ×2 (05:26→13:11)
[2019-04-29] MEDS: *HR* Enoxaparin 40 MG/0.4 ML SYRINGE SQ SCH (05:26)
[2019-04-29 08:04] LABS: BUN/Creatinine Ratio 4 (6-26); Blood Urea Nitrogen 4 mg/dL (6-20); Calcium 9.8 mg/dL (8.6-10.3); Carbon Dioxide 28 mEq/L (23-29); Chloride 107 mEq/L (98-107); Glucose 113 mg/dL (70-105); Magnesium 1.9 mg/dL (1.6-2.6); Osmolality,Calculated 290 (280-300); Potassium 3.4 mEq/L (3.5-5.1); Sodium 141 mEq/L (136-145); eGFR For African Americans > 60 (> 60); eGFR For Non-African Americans > 60 (> 60)
--- NOTE | 2019-04-29 10:50 | Internal Med Progress Note ---
Hospitalist Progress Note - Encounter Date of Encounter: 04/29/19 - Exam Vitals: Temp Pulse Resp BP Pulse Ox 98.1 F 90 14 113/70 98 04/29/19 10:42 04/29/19 10:42 04/29/19 10:42 04/29/19 10:42 04/29/19 10:42 - Assessment and Plan (1) Intractable nausea and vomiting Current Visit: Yes Status: Acute (2) Diarrhea Current Visit: No Status: Acute (3) Cannabinoid hyperemesis syndrome Current Visit: Yes Status: Acute - Time Spent with Patient Total time spent is greater than 50% in coordination of care (as documented) at patient's floor/unit and/or counseling patient: Internal Medicine: Result - Labs CBC & Chem 7: 04/25/19 05:07 04/29/19 07:20 Labs: BMP 04/29/19 07:20 Sodium 141 Potassium 3.4 L Chloride 107 Carbon Dioxide 28 BUN 4 L Creatinine 1.03 Glucose 113 H Calcium 9.8 Consult Discharge Plan - Plan Referrals: Salty Wise, LACQUER SHADER [Primary Care Provider] - (1) Intractable nausea and vomiting Qualifiers: Vomiting type: unspecified Qualified Code(s): R11.2 - Nausea with vomiting, unspecified (2) Diarrhea Qualifiers: Diarrhea type: unspecified type Qualified Code(s): R19.7 - Diarrhea, unspecified
--- NOTE | 2019-04-29 12:27 | Discharge Summary ---
Date of Encounter: 04/29/19 - Discharge Diagnosis (1) Intractable nausea and vomiting Status: Acute Qualifiers: Vomiting type: unspecified Qualified Code(s): R11.2 - Nausea with vomiting, unspecified (2) Diarrhea Status: Acute Qualifiers: Diarrhea type: unspecified type Qualified Code(s): R19.7 - Diarrhea, unspecified (3) Cannabinoid hyperemesis syndrome Status: Acute Hospital course: Mr. Kaiser is a 24 year old male - Time Spent with Patient Total time spent providing and/or coordinating discharge services: - Discharge Medications Prescriptions: No Action Ondansetron ODT [Zofran ODT] 4 mg SL Q8H PRN PRN Reason: Nausea Ibuprofen [Ibu] 800 mg PO Q8H PRN PRN Reason: Pain DiphenhydraMINE [Benadryl] 25 mg PO Q6HR PRN PRN Reason: allergy/sleep Home Medications: DiphenhydraMINE [Benadryl] 25 mg PO Q6HR PRN 04/24/19 [History] Ibuprofen [Ibu] 800 mg PO Q8H PRN 04/24/19 [History] Ondansetron ODT [Zofran ODT] 4 mg SL Q8H PRN 04/24/19 [History] Allergies/Adverse Reactions: Allergy/AdvReac Type Severity Reaction Status Date / Time haloperidol [From Haldol] AdvReac See Verified 04/24/19 11:02 Comments metoclopramide [From Reglan] AdvReac Seizure Verified 04/24/19 11:02 prochlorperazine AdvReac Unconscious Verified 04/24/19 11:02 [From Compazine] promethazine [From Phenergan] AdvReac Seizure Verified 04/24/19 11:02 Date of admission: 04/27/19 14:22 Primary care physician: Salty Wise CNP Consults: 04/24/19 17:01 Consult to Gastroenterology [CONS] Stat Consulting Provider: Gastroenterology Katelynn Reason for Consult: Intractable N/V Time Notified: 17:02 Call Completed: No - Constitutional Vitals: Temp Pulse Resp BP Pulse Ox 98.1 F 90 14 113/70 98 04/29/19 10:42 04/29/19 10:42 04/29/19 10:42 04/29/19 10:42 04/29/19 10:42 General appearance: Present: A&O X 3 - Discharge Instructions Follow Up With: Salty Wise CNP [Primary Care Provider] -
[2019-04-29] MEDS ORDERED: Acetaminophen IV 1,000 MG/100 ML INFUS..BTL IVPB ONE (12:45)
[2019-04-29] MEDS: Potassium Chloride 40 MEQ in D5% in 0.45% NACL 1,000 ML IVC SCH ×3 (13:10→15:14)
[2019-04-29] MEDS: Lactobacillus 1 EACH CAP.SPRINK PO SCH ×2 (13:11→21:03)
[2019-04-29] MEDS: *HR* LORazepam 2 MG/ML VIAL IVP PRN ×2 (13:30→23:11)
--- NOTE | 2019-04-29 14:22 | Internal Med Progress Note ---
<Tootie Quiñones - Last Filed: 04/29/19 14:32> Hospitalist Progress Note - Encounter Date of Encounter: 04/29/19 Time of Encounter: 09:40 - Exam Vitals: Temp Pulse Resp BP Pulse Ox 98.1 F 90 14 113/70 98 04/29/19 10:42 04/29/19 10:42 04/29/19 10:42 04/29/19 10:42 04/29/19 10:42 - Assessment and Plan (1) Intractable nausea and vomiting Current Visit: Yes Status: Acute (2) Abdominal pain Current Visit: Yes Status: Acute (3) DVT prophylaxis Current Visit: Yes Status: Acute (4) Substance abuse Current Visit: Yes Status: Acute - Time Spent with Patient Total time spent is greater than 50% in coordination of care (as documented) at patient's floor/unit and/or counseling patient: Internal Medicine: Result - Labs CBC & Chem 7: 04/25/19 05:07 04/29/19 07:20 Labs: BMP 04/29/19 07:20 Sodium 141 Potassium 3.4 L Chloride 107 Carbon Dioxide 28 BUN 4 L Creatinine 1.03 Glucose 113 H Calcium 9.8 - Impressions Impressions Gastric Emptying Nuclear Medicine 04/29/19 08:00 IMPRESSION: Delayed gastric emptying. D/ / Aram Gardner MD / Aram Gardner MD Interpreting Provider: Aram Gardner MD Consult Discharge Plan - Plan Referrals: Salty Wise, MUD TANK OPERATOR [Primary Care Provider] - - Attending Attestation I saw evaluated and examined this patient and reviewed objective data including labs and my medical decision-making was reviewed with the Resident Physician, Joycelyn Garcia. I agree with the documented findings, disposition and treatment plan as described except to any changes set forth below. We independently had [id number] contact with the patient. Patient continues to have intractable nausea. Underwent gastric emptying study today which showed delayed gastric emptying. Discussed with [facility] about potential transfer. They stated that they would discuss meeting on Wednesday and let us know if they would accept the patient. In the meantime, continue supportive care. Treat anxiety is Ativan. Recommend outpatient follow-up with psychiatrist for long-term treatment. Pain control. Antiemetics. Diet as tolerated. <Joycelyn Garcia I - Last Filed: 04/29/19 15:06> Hospitalist Progress Note - Encounter Date of Encounter: 04/29/19 - Subjective Interval History: patient is seen and examined today . he still complains of nausea , no vomiting , had gastric empty test and showed delay emptying ,patient requesting pain medication for his abdominal pain . no chest pain , SOB , no fever but he states he has sweating . - Exam Vitals: Temp Pulse Resp BP Pulse Ox 98.1 F 90 14 113/70 98 04/29/19 10:42 04/29/19 10:42 04/29/19 10:42 04/29/19 10:42 04/29/19 10:42 Exam: General: Patient is alert, mild distress, oriented x 3 Respiratory: Good respiratory effort. Normal breath sounds. No wheezing or crackles. Cardiovascular: Regular rate and rhythm. s1 and s2 normal No clicks, rubs, gallops, or murmurs. No pedal edema Abdomen: Abdomen is soft, generalized tenderness. Bowel sounds are present Musculoskeletal: Spontaneously moving all extremities Skin: warm, dry, intact. Psych: Anxious - Assessment and Plan (1) Intractable nausea and vomiting Current Visit: Yes Status: Acute Assessment and Plan: patient still complains with intractable nausea He is unable to tolerate any oral intake he is on ativan and diphyenhydramine for nausea as PRN Underwent EGD which did not show concerning for gastroparesis Pylorus was injected with botulinum toxin, additionally underwent dilation of the esophagus Biopsies were take to rule out H.pylori gastric empty test :delay gastric emptying Reached out to [facility].. Waiting on meeting to discuss accepting patient on Wednesday (2) Diarrhea Current Visit: No Status: Acute Assessment and Plan: resolved (3) Cannabinoid hyperemesis syndrome Current Visit: Yes Status: Acute Assessment and Plan: Patient present with intractable nausea and vomiting patient is a known case of Marijuana abuse drug toxi positive for Marijuana - Time Spent with Patient Total time spent is greater than 50% in coordination of care (as documented) at patient's floor/unit and/or counseling patient: Internal Medicine: Result - Labs CBC & Chem 7: 04/25/19 05:07 04/29/19 07:20 Labs: BMP 04/29/19 07:20 Sodium 141 Potassium 3.4 L Chloride 107 Carbon Dioxide 28 BUN 4 L Creatinine 1.03 Glucose 113 H Calcium 9.8 - Impressions Impressions Gastric Emptying Nuclear Medicine 04/29/19 08:00 IMPRESSION: Delayed gastric emptying. D/ / Aram Gardner MD / Aram Gardner MD Interpreting Provider: Aram Gardner MD <Tootie Quiñones - Last Filed: 04/29/19 14:32> (1) Intractable nausea and vomiting Qualifiers: Vomiting type: unspecified Qualified Code(s): R11.2 - Nausea with vomiting, unspecified (2) Abdominal pain Qualifiers: Abdominal location: right upper quadrant Qualified Code(s): R10.11 - Right upper quadrant pain <Joycelyn Garcia I - Last Filed: 04/29/19 15:06> (1) Intractable nausea and vomiting Qualifiers: Vomiting type: unspecified Qualified Code(s): R11.2 - Nausea with vomiting, unspecified (2) Diarrhea Qualifiers: Diarrhea type: unspecified type Qualified Code(s): R19.7 - Diarrhea, unspecified
[2019-04-29] MEDS ORDERED: Ketorolac 15 MG/ML VIAL IVP PRN ×2 (15:36→15:39)
[2019-04-30] MEDS: Ondansetron 4 MG/2 ML VIAL IVP PRN ×3 (00:08→20:59)
[2019-04-30] MEDS: Potassium Chloride 40 MEQ in D5% in 0.45% NACL 1,000 ML IVC SCH ×2 (02:07→10:59)
[2019-04-30 04:18] LABS: BUN/Creatinine Ratio 4 (6-26); Blood Urea Nitrogen 3 mg/dL (6-20); Calcium 9.2 mg/dL (8.6-10.3); Carbon Dioxide 23 mEq/L (23-29); Chloride 106 mEq/L (98-107); Glucose 93 mg/dL (70-105); Osmolality,Calculated 284 (280-300); Potassium 3.5 mEq/L (3.5-5.1); Sodium 139 mEq/L (136-145); eGFR For African Americans > 60 (> 60); eGFR For Non-African Americans > 60 (> 60)
[2019-04-30] MEDS: *HR* Enoxaparin 40 MG/0.4 ML SYRINGE SQ SCH (06:31)
--- NOTE | 2019-04-30 08:04 | Internal Med Progress Note ---
<Tootie Quiñones - Last Filed: 04/30/19 10:52> Hospitalist Progress Note - Encounter Date of Encounter: 04/30/19 Time of Encounter: 08:55 - Exam Vitals: Temp Pulse Resp BP Pulse Ox 97.8 F 107 16 124/67 94 04/30/19 10:38 04/30/19 10:38 04/30/19 10:38 04/30/19 10:38 04/30/19 10:38 - Assessment and Plan (1) Intractable nausea and vomiting Current Visit: Yes Status: Acute (2) Abdominal pain Current Visit: Yes Status: Acute (3) DVT prophylaxis Current Visit: Yes Status: Acute (4) Substance abuse Current Visit: Yes Status: Acute - Time Spent with Patient Total time spent is greater than 50% in coordination of care (as documented) at patient's floor/unit and/or counseling patient: Internal Medicine: Result - Labs CBC & Chem 7: 04/25/19 05:07 04/30/19 02:06 Labs: BMP 04/30/19 02:06 Sodium 139 Potassium 3.5 Chloride 106 Carbon Dioxide 23 BUN 3 L Creatinine 0.83 Glucose 93 Calcium 9.2 - Impressions Impressions Gastric Emptying Nuclear Medicine 04/29/19 08:00 IMPRESSION: Delayed gastric emptying. D/ / Aram Gardner MD / Aram Gardner MD Interpreting Provider: Aram Gardner MD Consult Discharge Plan - Plan Referrals: Salty Wise, [employer] [Primary Care Provider] - - Attending Attestation I saw evaluated and examined this patient and reviewed objective data including labs and my medical decision-making was reviewed with the Resident Physician. I agree with the documented findings, disposition and treatment plan as described except to any changes set forth below. We independently had [id number] contact with the patient. Patient has been able to tolerate clear liquids since last night. Continues to have nausea and significant abdominal pain. No fever or chills reported overnight. Will continue supportive care. Await decision regarding acceptance to [facility] for transfer. Continue current medications. <Joycelyn Garcia I - Last Filed: 04/30/19 12:50> Hospitalist Progress Note - Encounter Date of Encounter: 04/30/19 - Subjective Interval History: Patient has been able to tolerate clear liquids since last night. Continues to have nausea and significant abdominal pain. No fever or chills reported overnight. Will continue supportive care. Await decision regarding acceptance to [facility] for transfer. - Exam Vitals: Temp Pulse Resp BP Pulse Ox 97.9 F 77 16 113/81 98 04/30/19 06:44 04/30/19 06:44 04/30/19 06:44 04/30/19 06:44 04/30/19 06:44 Exam: General: Patient is alert, mild distress, oriented x 3 Respiratory: Good respiratory effort. Normal breath sounds. No wheezing or crackles. Cardiovascular: Regular rate and rhythm. s1 and s2 normal No clicks, rubs, gallops, or murmurs. No pedal edema Abdomen: Abdomen is soft, generalized tenderness. Bowel sounds are present Musculoskeletal: Spontaneously moving all extremities Skin: warm, dry, intact. Psych: Anxious - Assessment and Plan (1) Intractable nausea and vomiting Current Visit: Yes Status: Acute Assessment and Plan: Patient still has nausea but no vomiting in the last 24 hours . able to tolerate liquid diet he is on ativan and diphyenhydramine for nausea as PRN Underwent EGD which did not show concerning for gastroparesis Pylorus was injected with botulinum toxin, additionally underwent dilation of the esophagus Biopsies were take to rule out H.pylori gastric empty test :delay gastric emptying Reached out to [facility] transfer center.. Waiting on meeting to discuss accepting patient on Wednesday (2) Diarrhea Current Visit: No Status: Acute Assessment and Plan: resolved (3) Cannabinoid hyperemesis syndrome Current Visit: Yes Status: Acute Assessment and Plan: Patient present with intractable nausea and vomiting patient is a known case of Marijuana abuse drug toxi positive for Marijuana - Time Spent with Patient Total time spent is greater than 50% in coordination of care (as documented) at patient's floor/unit and/or counseling patient: Internal Medicine: Result - Labs CBC & Chem 7: 04/25/19 05:07 04/30/19 02:06 Labs: BMP 04/29/19 04/30/19 07:20 02:06 Sodium 141 139 Potassium 3.4 L 3.5 Chloride 107 106 Carbon Dioxide 28 23 BUN 4 L 3 L Creatinine 1.03 0.83 Glucose 113 H 93 Calcium 9.8 9.2 - Impressions Impressions Gastric Emptying Nuclear Medicine 04/29/19 08:00 IMPRESSION: Delayed gastric emptying. D/ / Aram Gardner MD / Aram Gardner MD Interpreting Provider: Aram Gardner MD <Tootie Quiñones - Last Filed: 04/30/19 10:52> (1) Intractable nausea and vomiting Qualifiers: Vomiting type: unspecified Qualified Code(s): R11.2 - Nausea with vomiting, unspecified (2) Abdominal pain Qualifiers: Abdominal location: right upper quadrant Qualified Code(s): R10.11 - Right upper quadrant pain <Joycelyn Garcia I - Last Filed: 04/30/19 12:50> (1) Intractable nausea and vomiting Qualifiers: Vomiting type: unspecified Qualified Code(s): R11.2 - Nausea with vomiting, unspecified (2) Diarrhea Qualifiers: Diarrhea type: unspecified type Qualified Code(s): R19.7 - Diarrhea, unspecified
[2019-04-30] MEDS: Lactobacillus 1 EACH CAP.SPRINK PO SCH ×2 (09:09→20:58)
[2019-04-30] MEDS: *HR* LORazepam 2 MG/ML VIAL IVP PRN (09:09)
[2019-04-30] MEDS ORDERED: *HR* LORazepam 0.5 MG TABLET PO PRN (12:36)
[2019-04-30] MEDS ORDERED: *HR* LORazepam 1 MG TABLET PO ONE (22:26)
[2019-05-01] MEDS: Melatonin 3 MG TABLET PO PRN (01:00)
[2019-05-01 05:17] LABS: BUN/Creatinine Ratio 4 (6-26); Blood Urea Nitrogen 4 mg/dL (6-20); Calcium 9.6 mg/dL (8.6-10.3); Carbon Dioxide 27 mEq/L (23-29); Chloride 103 mEq/L (98-107); Glucose 99 mg/dL (70-105); Osmolality,Calculated 287 (280-300); Potassium 3.8 mEq/L (3.5-5.1); Sodium 140 mEq/L (136-145); eGFR For African Americans > 60 (> 60); eGFR For Non-African Americans > 60 (> 60)
[2019-05-01] MEDS: *HR* Enoxaparin 40 MG/0.4 ML SYRINGE SQ SCH (05:25)
[2019-05-01] MEDS: Ondansetron 4 MG/2 ML VIAL IVP PRN (05:31)
[2019-05-01] MEDS ORDERED: *HR* LORazepam 0.5 MG TABLET PO PRN (06:30)
--- NOTE | 2019-05-01 08:10 | Discharge Summary ---
<Joycelyn Garcia I - Last Filed: 05/01/19 18:12> - NOTES TO OUTPATIENT PROVIDER Notes to Outpatient Provider: Mr. Kaiser is a 24 year old male with past medical history of gastroparesis presented with intractable nausea and vomiting . Underwent EGD which did not show concerning for gastroparesis. Pylorus was inje cted with botulinum toxin, additionally underwent dilation of the esophagus .Gastric empty test showes delay emptying . Follow up with GI as outpatient for further evaluations . Date of Encounter: 05/01/19 Time of Encounter: 09:40 - Discharge Diagnosis (1) Intractable nausea and vomiting Priority: Primary Status: Acute Qualifiers: Vomiting type: unspecified Qualified Code(s): R11.2 - Nausea with vomiting, unspecified (2) Diarrhea Priority: Secondary Status: Acute Qualifiers: Diarrhea type: unspecified type Qualified Code(s): R19.7 - Diarrhea, unspecified (3) Cannabinoid hyperemesis syndrome Priority: Secondary Status: Acute Hospital course: Mr. Kaiser is a 24 year old male with past medical history of Gastroparesis and with a history of esophageal surgery for possible cyst as a child now Presented to the ED due to nausea and vomiting worsened in the past few days associated with poor oral intake and diffuse abdominal pain . His nausea and vomiting responded well to Benadryl and Ativan . His abdominal pain responded to oxycodone , later patient start to tolerate liquid diet more . GI were consulted and they recommend EGD which did not show concerning for gastropa resis Pylorus was injected with botulinum toxin, additionally underwent dilation of the esophagus . He also underwent gastric empty test and showed delay emptying ,GI also recommend transfering patient to [facility] as patient might be a candidate for gastric pacemaker . However [facility] did not accept him as in patient and a follow up appointment was made for him there at may 09 . Patient is stable and understand treatment and plan . patient was instructed to follow up with GI at [facility] Discharge discussed with: patient - Time Spent with Patient Total time spent providing and/or coordinating discharge services: - Discharge Medications Prescriptions: New OxyCODONE/APAP 10/325 [Percocet 10/325 MG] 1 each PO Q6HR PRN 7 Days #28 tablet PRN Reason: Pain Continued Ondansetron ODT [Zofran ODT] 4 mg SL Q8H PRN PRN Reason: Nausea Ibuprofen [Ibu] 800 mg PO Q8H PRN PRN Reason: Pain DiphenhydraMINE [Benadryl] 25 mg PO Q6HR PRN PRN Reason: allergy/sleep Home Medications: DiphenhydraMINE [Benadryl] 25 mg PO Q6HR PRN 04/24/19 [History] Ibuprofen [Ibu] 800 mg PO Q8H PRN 04/24/19 [History] Ondansetron ODT [Zofran ODT] 4 mg SL Q8H PRN 04/24/19 [History] OxyCODONE/APAP 10/325 [Percocet 10/325 MG] 1 each PO Q6HR PRN 7 Days #28 tablet 05/01/19 [Rx] Allergies/Adverse Reactions: Allergy/AdvReac Type Severity Reaction Status Date / Time haloperidol [From Haldol] AdvReac See Verified 04/24/19 11:02 Comments metoclopramide [From Reglan] AdvReac Seizure Verified 04/24/19 11:02 prochlorperazine AdvReac Unconscious Verified 04/24/19 11:02 [From Compazine] promethazine [From Phenergan] AdvReac Seizure Verified 04/24/19 11:02 Date of admission: 04/27/19 14:22 Primary care physician: Salty Wise CNP Consults: 04/24/19 17:01 Consult to Gastroenterology [CONS] Stat Consulting Provider: Gastroenterology Quentin Reason for Consult: Intractable N/V Time Notified: 17:02 Call Completed: No - Constitutional Vitals: Temp Pulse Resp BP Pulse Ox 97.9 F 94 15 115/77 96 05/01/19 07:49 05/01/19 07:49 05/01/19 07:49 05/01/19 07:49 05/01/19 07:49 General appearance: Present: A&O X 3 Exam: General: NAD, good eye contact, elderly, on bipap can speak in almost full sentences Head: Atraumatic, normocephalic. Face symmetric Eyes: EOMI, sclerae anicteric ENT: Mucous membranes moist. Trachea midline. Thoracic: No visible chest wall deformities. Normal breath sound bilaterally Cardio: Normal S1 and S2, regular rhythm Abdomen: Soft, periumbilical tenderness , nondistended Extremities: Warm, well perfused. No clubbing, cyanosis. Does have mild nonpitting edema b/l ankles Skin: Intact. No rashes, bruises, or ulcers Neuro: Awake, fully oriented. CN II-XII grossly intact. Strength 5/5 in b/l UE and LE - Patient Status Disposition: Home, Self-Care Functional capacity at discharge: independent ambulation Overall status at discharge: patient is back to baseline - Discharge Instructions Follow Up With: [facility] [Other] - 05/09/19 2:00 pm () Salty Wise CNP [Primary Care Provider] - - Diet and Activity Activity: increase activity as tolerated Diet: advance to your usual diet <Tootie Quiñones - Last Filed: 05/02/19 08:38> Date of Encounter: 05/01/19 Time of Encounter: 09:35 - Discharge Diagnosis (1) Intractable nausea and vomiting Status: Acute Qualifiers: Vomiting type: unspecified Qualified Code(s): R11.2 - Nausea with vomiting, unspecified (2) Abdominal pain Status: Acute Qualifiers: Abdominal location: right upper quadrant Qualified Code(s): R10.11 - Right upper quadrant pain (3) DVT prophylaxis Status: Acute (4) Substance abuse Status: Acute Hospital course: Mr. Kaiser is a 24 year old male - Time Spent with Patient Total time spent providing and/or coordinating discharge services: Date of admission: 04/27/19 14:22 Primary care physician: Salty Wise CNP Consults: 04/24/19 17:01 Consult to Gastroenterology [CONS] Stat Consulting Provider: Gastroenterology Katelynn Reason for Consult: Intractable N/V Time Notified: 17:02 Call Completed: No - Constitutional Vitals: Temp Pulse Resp BP Pulse Ox 98.1 F 83 15 114/71 96 05/01/19 15:06 05/01/19 15:06 05/01/19 15:06 05/01/19 15:06 05/01/19 15:06 - Attending Attestation I saw evaluated and examined this patient and reviewed objective data including labs and my medical decision-making was reviewed with the Resident Physician. I agree with the documented findings, disposition and discharge plan as described except to any changes set forth below. We independently had [id number] contact with the patient. Patient with a history of chronic gastroparesis who was hospitalized here with intractable nausea and vomiting. He was evaluated by GI and underwent upper GI endoscopy with dilatation and Botox injection. Since then his pain slowly tolerating clear liquid diet. Gastroenterology had recommended possible transfer to [facility] for higher level of care given his poor response to treatments here. We called [facility] and they recommended outpatient follow-up and have given him an appointment next week. Patient has been notified of the same and agreeable to be discharged today as he is tolerating liquid diet. He will follow up with [facility] for further management. In the meantime he will be discharged with pain medications as he reports severe pain in his abdomen and back. This is an acute flareup of his chronic pain. He will need to be followed by his primary care provider for this. Time spent on discharge: 8min
[2019-05-01] MEDS ORDERED: Fluticasone Propionate Nasal 50 MCG/SPRAY BOTTLE NS SCH (10:00)
[2019-05-01] MEDS: Acetaminophen 325 MG TABLET PO SCH ×2 (10:30→17:49)
[2019-05-01] MEDS: Lactobacillus 1 EACH CAP.SPRINK PO SCH (10:30)
[2019-05-01 12:00] LABS: Basophils % 0.2 %; Eosinophils # 0.2 K/mcL (0.0-0.6); Eosinophils % 2.4 %; Hematocrit 44.6 % (37.5-50.1); Immature Granulocytes % 0.4 % (0-4); Lymphocytes # 2.8 K/mcL (0.6-4.6); Lymphocytes % 32.8 %; Mean Corpuscular HGB Conc 34.8 g/dL (31.6-35.5); Mean Corpuscular Hemoglobin 30.8 pg (28.0-33.3); Mean Corpuscular Volume 88.7 fL (83.0-100.0); Mean Platelet Volume 9.4 fL (9.4-12.4); Monocytes # 0.6 K/mcL (0.0-1.3); Monocytes % 7.3 %; Neutrophils # 4.8 K/mcL (1.6-8.9); Platelet Count 304 K/mcL (140-400); Red Blood Count 5.03 M/mcL (4.19-5.50); Red Cell Distribution Width 11.8 % (11.5-14.5); Segmented Neutrophils % 56.9 %; White Blood Count 8.5 K/mcL (4.3-11.1)
[2019-05-01 12:01] LABS: Hemoglobin 15.5 g/dL (12.9-16.9)
[2019-05-01 12:48] LABS: Bilirubin,Urine Negative (Negative); Blood,Urine Negative (Negative); Clarity,Urine Clear (Clear); Color,Urine Yellow (Yellow); Glucose,Urine (UA) Normal (Normal); Ketones,Urine Negative (Negative); Leukocyte Esterase,Urine Negative (Negative); Nitrite,Urine Negative (Negative); Protein,Urine Negative (Neg-Trace); Specific Gravity,Urine 1.008 (1.010-1.025); Urobilinogen,Urine Normal (Normal)
[2019-05-01 15:07] VITALS: BP 114/71
== END 2019-05-01 19:21 | disposition home or self-care (01) | DRG 776 ==
LOC: EMEROOARM 10:57 → 3ANU 10:57 → SUATTDRO 17:09 → 3ANU 17:38 → SUATTDRO 04-27 14:22
PROVIDERS: ADMIT Internal Medicine; ATTEND Internal Medicine

== ENCOUNTER 2019-07-04 17:44 | Inpatient (IN) ==
[2019-07-04] MEDS ORDERED: Isovue-370 500 ML BOTTLE IVP ONE (18:24)
[2019-07-04] MEDS ORDERED: Ondansetron 4 MG/2 ML VIAL IVP ONE (18:25)
[2019-07-04] MEDS ORDERED: *HR* FentaNYL (PF) 100 MCG/2 ML VIAL IVP ONE ×2 (18:25→20:35)
[2019-07-04] MEDS ORDERED: 0.9 % Sodium Chloride 1,000 ML IVC ONE ×2 (18:25→20:17)
[2019-07-04 18:52] LABS: Basophils % 0.1 %; Hematocrit 48.1 % (37.5-50.1); Hemoglobin 16.7 g/dL (12.9-16.9); Immature Granulocytes % 0.4 % (0-4); Lymphocytes # 1.1 K/mcL (0.6-4.6); Lymphocytes % 6.5 %; Mean Corpuscular HGB Conc 34.7 g/dL (31.6-35.5); Mean Corpuscular Volume 89.4 fL (83.0-100.0); Monocytes # 0.4 K/mcL (0.0-1.3); Monocytes % 2.6 %; Neutrophils # 15.3 K/mcL (1.6-8.9); Platelet Count 309 K/mcL (140-400); Red Blood Count 5.38 M/mcL (4.19-5.50); Red Cell Distribution Width 11.7 % (11.5-14.5); Segmented Neutrophils % 90.4 %
[2019-07-04 19:09] LABS: Alanine Aminotransferase 73 Units/L (7-52); Albumin 5.6 g/dL (3.5-5.7); Albumin/Globulin Ratio 1.9 (1.1-2.2); Alkaline Phosphatase 76 Units/L (34-104); Aspartate Amino Transferase 41 Units/L (13-39); BUN/Creatinine Ratio 9 (6-26); Bilirubin,Direct 0.1 mg/dL (0.0-0.2); Bilirubin,Indirect 0.7 mg/dL (0.0-1.0); Bilirubin,Total 0.8 mg/dL (0.3-1.0); Blood Urea Nitrogen 9 mg/dL (6-20); Calcium 11.2 mg/dL (8.6-10.3); Carbon Dioxide 22 mEq/L (23-29); Chloride 101 mEq/L (98-107); Globulin 2.9 g/dL (2.4-3.5); Glucose 149 mg/dL (70-105); Lipase 12 Units/L (11-82); Osmolality,Calculated 289 (280-300); Sodium 139 mEq/L (136-145); Total Protein 8.5 g/dL (6.4-8.9); eGFR For African Americans > 60 (> 60); eGFR For Non-African Americans > 60 (> 60)
[2019-07-04] MEDS ORDERED: Capsaicin 0.025% 60 GM TUBE TP ONE (19:26)
[2019-07-04] MEDS ORDERED: MetroNIDAZOLE 500 MG/100 ML 500 MG/100 ML BAG IVPB ONE (20:33)
[2019-07-05] MEDS ORDERED: Ondansetron 4 MG/2 ML VIAL IVP PRN
[2019-07-05] MEDS ORDERED: Naloxone 0.4 MG/ML INJ IVP PRN
[2019-07-05] MEDS ORDERED: Ketorolac 15 MG/ML VIAL IVP ONE (00:29)
[2019-07-05] MEDS ORDERED: 0.9 % Sodium Chloride 1,000 ML IVC SCH (03:30)
[2019-07-05] MEDS ORDERED: *HR* LORazepam 2 MG/ML VIAL IVP ONE (04:01)
[2019-07-05 09:57] LABS: Basophils % 0.1 %; Eosinophils % 0.1 %; Hematocrit 39.6 % (37.5-50.1); Immature Granulocytes % 0.6 % (0-4); Lymphocytes # 1.6 K/mcL (0.6-4.6); Lymphocytes % 12.9 %; Mean Corpuscular HGB Conc 35.4 g/dL (31.6-35.5); Mean Corpuscular Hemoglobin 31.3 pg (28.0-33.3); Mean Corpuscular Volume 88.6 fL (83.0-100.0); Mean Platelet Volume 10.1 fL (9.4-12.4); Monocytes # 0.7 K/mcL (0.0-1.3); Neutrophils # 9.8 K/mcL (1.6-8.9); Platelet Count 225 K/mcL (140-400); Red Blood Count 4.47 M/mcL (4.19-5.50); Red Cell Distribution Width 11.7 % (11.5-14.5); Segmented Neutrophils % 80.3 %; White Blood Count 12.2 K/mcL (4.3-11.1)
[2019-07-05 10:11] LABS: BUN/Creatinine Ratio 13 (6-26); Blood Urea Nitrogen 9 mg/dL (6-20); Carbon Dioxide 22 mEq/L (23-29); Chloride 105 mEq/L (98-107); Glucose 128 mg/dL (70-105); Magnesium 1.5 mg/dL (1.6-2.6); Osmolality,Calculated 284 (280-300); Phosphorous 2.3 mg/dL (2.7-4.5); Potassium 3.4 mEq/L (3.5-5.1); Sodium 137 mEq/L (136-145); eGFR For African Americans > 60 (> 60); eGFR For Non-African Americans > 60 (> 60)
[2019-07-05 10:20] LABS: VBG Ionized Calcium 0.95 mmol/L (1.15-1.35)
[2019-07-05 10:41] LABS: Amphetamine Screen,Urine Negative ng/mL (Cutoff=1000); Barbiturate Screen,Urine Negative ng/mL (Cutoff=200); Benzodiazepines Screen,Urine Positive ng/mL (Cutoff=200); Cannabinoid Screen,Urine Positive ng/mL (Cutoff = 50); Cocaine Screen,Urine Negative ng/mL (Cutoff= 300); Opiate Screen,Urine Positive ng/mL (Cutoff=300); Phencyclidine Screen,Urine Negative ng/mL (Cutoff=25)
[2019-07-05 11:15] LABS: Campylobacter by PCR Not detected (Not detect)
[2019-07-05 11:17] LABS: C.difficile Toxin A/B Gene PCR DETECTED (Not detect); Cryptosporidium by PCR Not detected (Not detect); Cyclospora cayetanensis PCR Not detected (Not detect); E. coli O157 by PCR Not detected (Not detect); Enteroaggregative E.coli(EAEC) Not detected (Not detect); Enteropathogenic E.coli(EPEC) Not detected (Not detect); Enterotoxigenic E.coli (ETEC) Not detected (Not detect); Plesiomonas shigelloides PCR Not detected (Not detect); Salmonella PCR Not detected (Not detect); Shig/EnteroinvasiveE coli EIEC Not detected (Not detect); Shigalike tox-prod E coli STEC Not detected (Not detect); Vibrio PCR Not detected (Not detect); Vibrio cholerae PCR Not detected (Not detect); Yersinia enterocolitica PCR Not detected (Not detect)
[2019-07-05 11:18] LABS: Adenovirus F 40/41 PCR Not detected (Not detect); Astrovirus PCR Not detected (Not detect); Entamoeba histolytica PCR Not detected (Not detect); Giardia lamblia PCR Not detected (Not detect); Norovirus GI/GII PCR Not detected (Not detect); Rotavirus A PCR Not detected (Not detect); Sapovirus PCR Not detected (Not detect)
[2019-07-05 11:20] LABS: Estimated Average Glucose 111 mg/dl
[2019-07-05] MEDS: Ondansetron 4 MG/2 ML VIAL IVP PRN ×2 (12:22→22:49)
[2019-07-05 14:51] LABS: Hepatitis B Surface Antigen Nonreactive (Nonreactive)
[2019-07-05] MEDS: Vancomycin Oral Soln 125 MG/2.5 ML UDC PO SCH ×3 (14:55→21:12)
[2019-07-05] MEDS ORDERED: *HR* LORazepam 0.5 MG TABLET PO ONE (14:56)
[2019-07-05 15:21] LABS: Hepatitis B Core IgM Nonreactive (Nonreactive)
[2019-07-05 15:25] LABS: Hepatitis A Antibody IgM Nonreactive (Nonreactive); Hepatitis C Virus Antibody Nonreactive (Nonreactive)
[2019-07-05] MEDS: 0.9 % Sodium Chloride 1,000 ML IVC SCH (18:48)
[2019-07-05] MEDS: *HR* LORazepam 0.5 MG TABLET PO ONE ×2 (23:33→23:36)
[2019-07-06] MEDS ORDERED: traMADol 50 MG TABLET PO ONE (02:01)
[2019-07-06] MEDS ORDERED: Ondansetron 4 MG/2 ML VIAL IVP ONE (02:20)
[2019-07-06] MEDS: 0.9 % Sodium Chloride 1,000 ML IVC SCH ×2 (04:44→16:37)
[2019-07-06] MEDS: Ondansetron 4 MG/2 ML VIAL IVP PRN (05:10)
[2019-07-06] MEDS ORDERED: Ketorolac 15 MG/ML VIAL IVP ONE (06:23)
[2019-07-06] MEDS: Vancomycin Oral Soln 125 MG/2.5 ML UDC PO SCH ×4 (08:14→20:18)
[2019-07-06 09:11] LABS: Basophils % 0.1 %; Hematocrit 41.2 % (37.5-50.1); Hemoglobin 14.5 g/dL (12.9-16.9); Immature Granulocytes % 0.3 % (0-4); Lymphocytes # 2.3 K/mcL (0.6-4.6); Lymphocytes % 18.6 %; Mean Corpuscular HGB Conc 35.2 g/dL (31.6-35.5); Mean Corpuscular Hemoglobin 31.2 pg (28.0-33.3); Mean Corpuscular Volume 88.6 fL (83.0-100.0); Mean Platelet Volume 9.8 fL (9.4-12.4); Monocytes # 0.7 K/mcL (0.0-1.3); Monocytes % 5.5 %; Neutrophils # 9.1 K/mcL (1.6-8.9); Platelet Count 256 K/mcL (140-400); Red Blood Count 4.65 M/mcL (4.19-5.50); Red Cell Distribution Width 11.5 % (11.5-14.5); Segmented Neutrophils % 75.5 %; White Blood Count 12.1 K/mcL (4.3-11.1)
[2019-07-06 09:20] LABS: BUN/Creatinine Ratio 12 (6-26); Blood Urea Nitrogen 8 mg/dL (6-20); Calcium 9.2 mg/dL (8.6-10.3); Carbon Dioxide 23 mEq/L (23-29); Chloride 101 mEq/L (98-107); Glucose 110 mg/dL (70-105); Osmolality,Calculated 279 (280-300); Potassium 3.4 mEq/L (3.5-5.1); Sodium 135 mEq/L (136-145); eGFR For African Americans > 60 (> 60); eGFR For Non-African Americans > 60 (> 60)
[2019-07-06] MEDS ORDERED: Acetaminophen 325 MG TABLET PO PRN (09:45)
[2019-07-06] MEDS: Lactobacillus 1 EACH CAP.SPRINK PO SCH (10:16)
[2019-07-06] MEDS: Ketorolac 15 MG/ML VIAL IVP PRN ×2 (10:16→20:18)
[2019-07-06] MEDS ORDERED: *HR* FentaNYL (PF) 100 MCG/2 ML VIAL IVP ONE (14:20)
[2019-07-06] MEDS ORDERED: *HR* FentaNYL (PF) 100 MCG/2 ML VIAL IVP PRN (18:12)
[2019-07-07] MEDS: Ondansetron 4 MG/2 ML VIAL IVP PRN ×2 (01:08→08:02)
[2019-07-07] MEDS: Ketorolac 15 MG/ML VIAL IVP PRN ×2 (03:18→09:29)
[2019-07-07] MEDS: Lactobacillus 1 EACH CAP.SPRINK PO SCH (09:29)
[2019-07-07] MEDS: Vancomycin Oral Soln 125 MG/2.5 ML UDC PO SCH ×3 (09:29→17:17)
[2019-07-07] MEDS ORDERED: *HR* HYDROmorphone 2 MG/ML SYRINGE IVP PRN ×2 (10:43→10:56)
[2019-07-07] MEDS ORDERED: GI Cocktail 40 ML EACH PO ONE (10:50)
[2019-07-07] MEDS: 0.9 % Sodium Chloride 1,000 ML IVC SCH (11:36)
[2019-07-07 15:27] VITALS: BP 114/71
[2019-07-07] MEDS ORDERED: *HR* HYDROmorphone 2 MG/ML SYRINGE IVP ONE (17:27)
== END 2019-07-07 19:28 | disposition home or self-care (01) | DRG 720 ==
LOC: 3ANU 17:44 → EMEROOARM 17:44 → SUATTDRO 22:03 → 3ANU 22:48
PROVIDERS: ADMIT Family Medicine; ATTEND Internal Medicine

== ENCOUNTER 2020-04-30 14:29 | Observation (INO) ==
[2020-04-30] MEDS ORDERED: 0.9 % Sodium Chloride 1,000 ML IVC ONE (14:59)
[2020-04-30 15:33] LABS: Basophils % 0.3 %; Eosinophils % 0.3 %; Hematocrit 46.4 % (37.5-50.1); Hemoglobin 16.8 g/dL (12.9-16.9); Immature Granulocytes % 0.6 % (0-4); Lymphocytes # 2.9 K/mcL (0.6-4.6); Mean Corpuscular HGB Conc 36.2 g/dL (31.6-35.5); Mean Corpuscular Hemoglobin 32.7 pg (28.0-33.3); Mean Corpuscular Volume 90.4 fL (83.0-100.0); Mean Platelet Volume 9.7 fL (9.4-12.4); Monocytes # 0.6 K/mcL (0.0-1.3); Monocytes % 4.2 %; Neutrophils # 10.7 K/mcL (1.6-8.9); Platelet Count 272 K/mcL (140-400); Red Blood Count 5.13 M/mcL (4.19-5.50); Segmented Neutrophils % 74.6 %; White Blood Count 14.3 K/mcL (4.3-11.1)
[2020-04-30 15:47] LABS: Alanine Aminotransferase 41 Units/L (7-52); Albumin 5.2 g/dL (3.5-5.7); Albumin/Globulin Ratio 1.9 (1.1-2.2); Alkaline Phosphatase 76 Units/L (34-104); Aspartate Amino Transferase 22 Units/L (13-39); BUN/Creatinine Ratio 11 (6-26); Bilirubin,Total 0.8 mg/dL (0.3-1.0); Blood Urea Nitrogen 10 mg/dL (6-20); Calcium 10.5 mg/dL (8.6-10.3); Carbon Dioxide 23 mEq/L (23-29); Chloride 104 mEq/L (98-107); Globulin 2.7 g/dL (2.4-3.5); Glucose 146 mg/dL (70-105); Lipase 12 Units/L (11-82); Osmolality,Calculated 288 (280-300); Potassium 3.5 mEq/L (3.5-5.1); Sodium 138 mEq/L (136-145); Total Protein 7.9 g/dL (6.4-8.9); eGFR For African Americans > 60 (> 60); eGFR For Non-African Americans > 60 (> 60)
[2020-04-30] MEDS ORDERED: Ondansetron 4 MG/2 ML VIAL IVP STA (17:01)
[2020-04-30] MEDS ORDERED: methylPREDNISolone 125 MG/2 ML VIAL IVP ONE (17:03)
[2020-04-30] MEDS ORDERED: MetroNIDAZOLE 500 MG/100 ML 500 MG/100 ML BAG IVPB ONE (17:03)
[2020-04-30] MEDS ORDERED: Morphine Sulfate 2 MG/ML SYRINGE IVP STA (17:23)
[2020-04-30] MEDS ORDERED: Acetaminophen 325 MG TABLET PO PRN (17:56)
[2020-04-30] MEDS ORDERED: *HR* OxyCODONE Immed Rel 5 MG TABLET PO PRN (17:56)
[2020-04-30] MEDS ORDERED: Ondansetron 4 MG/2 ML VIAL IVP PRN (17:56)
[2020-04-30] MEDS ORDERED: Naloxone 0.4 MG/ML INJ IVP PRN (17:56)
[2020-04-30 18:53] LABS: C-Reactive Protein < 5 mg/L (Less than 10); Magnesium 1.9 mg/dL (1.6-2.6)
[2020-04-30] MEDS: 0.9 % Sodium Chloride 1,000 ML IVC SCH (21:43)
[2020-04-30] MEDS ORDERED: Ketorolac 15 MG/ML VIAL IVP ONE (22:00)
[2020-04-30] MEDS ORDERED: Chloraseptic Spray 177 ML BOTTLE MM PRN (22:04)
[2020-04-30 22:48] LABS: Bilirubin,Urine Negative (Negative); Blood,Urine Negative (Negative); Clarity,Urine Clear (Clear); Color,Urine Colorless (Yellow); Glucose,Urine (UA) 200 mg/dL (Normal); Ketones,Urine 10 mg/dL (Negative); Leukocyte Esterase,Urine Negative (Negative); Nitrite,Urine Negative (Negative); PH,Urine 8.5 pH Units (5.0-8.0); Protein,Urine Trace mg/dL (Neg-Trace); RBC,Urine 0-3 per hpf (0-3); Specific Gravity,Urine 1.018 (1.010-1.025); Urobilinogen,Urine Normal (Normal)
[2020-04-30 22:56] LABS: Amphetamine Screen,Urine Negative ng/mL (Cutoff=1000); Barbiturate Screen,Urine Negative ng/mL (Cutoff=200); Benzodiazepines Screen,Urine Negative ng/mL (Cutoff=200); Cannabinoid Screen,Urine Positive ng/mL (Cutoff = 50); Cocaine Screen,Urine Negative ng/mL (Cutoff= 300); Opiate Screen,Urine Positive ng/mL (Cutoff=300); Phencyclidine Screen,Urine Negative ng/mL (Cutoff=25)
[2020-04-30] MEDS ORDERED: *HR* LORazepam 2 MG/ML VIAL IVP ONE (23:23)
[2020-05-01] MEDS: 0.9 % Sodium Chloride 1,000 ML IVC SCH (05:44)
[2020-05-01 06:28] LABS: Basophils % 0.1 %; Hematocrit 41.8 % (37.5-50.1); Hemoglobin 14.6 g/dL (12.9-16.9); Immature Granulocytes % 0.2 % (0-4); Lymphocytes # 1.4 K/mcL (0.6-4.6); Lymphocytes % 13.2 %; Mean Corpuscular HGB Conc 34.9 g/dL (31.6-35.5); Mean Corpuscular Hemoglobin 31.9 pg (28.0-33.3); Mean Corpuscular Volume 91.3 fL (83.0-100.0); Mean Platelet Volume 9.7 fL (9.4-12.4); Monocytes # 0.2 K/mcL (0.0-1.3); Monocytes % 1.5 %; Neutrophils # 8.9 K/mcL (1.6-8.9); Platelet Count 229 K/mcL (140-400); Red Blood Count 4.58 M/mcL (4.19-5.50); Red Cell Distribution Width 12.1 % (11.5-14.5); White Blood Count 10.4 K/mcL (4.3-11.1)
[2020-05-01 06:48] LABS: Alanine Aminotransferase 30 Units/L (7-52); Albumin 4.5 g/dL (3.5-5.7); Alkaline Phosphatase 61 Units/L (34-104); Aspartate Amino Transferase 17 Units/L (13-39); BUN/Creatinine Ratio 12 (6-26); Bilirubin,Total 0.7 mg/dL (0.3-1.0); Blood Urea Nitrogen 10 mg/dL (6-20); Calcium 9.1 mg/dL (8.6-10.3); Carbon Dioxide 22 mEq/L (23-29); Chloride 106 mEq/L (98-107); Globulin 2.2 g/dL (2.4-3.5); Glucose 132 mg/dL (70-105); Osmolality,Calculated 283 (280-300); Potassium 3.7 mEq/L (3.5-5.1); Sodium 136 mEq/L (136-145); Total Protein 6.7 g/dL (6.4-8.9); eGFR For African Americans > 60 (> 60); eGFR For Non-African Americans > 60 (> 60)
[2020-05-01] MEDS ORDERED: Scopolamine Patch 1.5 MG PATCH.TD72 TD ONE (22:09)
[2020-05-01] MEDS: Ondansetron 4 MG/2 ML VIAL IVP PRN (22:43)
[2020-05-02] MEDS ORDERED: *HR* LORazepam 2 MG/ML VIAL IVP ONE ×2 (03:25→14:07)
[2020-05-02 04:40] LABS: Basophils % 0.2 %; Eosinophils % 0.1 %; Hematocrit 39.3 % (37.5-50.1); Hemoglobin 13.6 g/dL (12.9-16.9); Immature Granulocytes % 0.5 % (0-4); Lymphocytes # 3.4 K/mcL (0.6-4.6); Lymphocytes % 30.6 %; Mean Corpuscular HGB Conc 34.6 g/dL (31.6-35.5); Mean Corpuscular Hemoglobin 31.5 pg (28.0-33.3); Mean Platelet Volume 9.7 fL (9.4-12.4); Monocytes # 0.6 K/mcL (0.0-1.3); Monocytes % 5.7 %; Neutrophils # 6.9 K/mcL (1.6-8.9); Platelet Count 230 K/mcL (140-400); Red Blood Count 4.32 M/mcL (4.19-5.50); Red Cell Distribution Width 12.1 % (11.5-14.5); Segmented Neutrophils % 62.9 %; White Blood Count 10.9 K/mcL (4.3-11.1)
[2020-05-02 04:54] LABS: Alanine Aminotransferase 25 Units/L (7-52); Albumin/Globulin Ratio 1.7 (1.1-2.2); Alkaline Phosphatase 52 Units/L (34-104); Aspartate Amino Transferase 14 Units/L (13-39); BUN/Creatinine Ratio 17 (6-26); Bilirubin,Total 0.8 mg/dL (0.3-1.0); Blood Urea Nitrogen 13 mg/dL (6-20); Calcium 8.7 mg/dL (8.6-10.3); Carbon Dioxide 24 mEq/L (23-29); Chloride 107 mEq/L (98-107); Globulin 2.3 g/dL (2.4-3.5); Glucose 96 mg/dL (70-105); Osmolality,Calculated 292 (280-300); Potassium 3.4 mEq/L (3.5-5.1); Sodium 141 mEq/L (136-145); Total Protein 6.3 g/dL (6.4-8.9); eGFR For African Americans > 60 (> 60); eGFR For Non-African Americans > 60 (> 60)
[2020-05-02 04:56] LABS: Magnesium 1.8 mg/dL (1.6-2.6); Phosphorous 4.4 mg/dL (2.7-4.5)
[2020-05-02] MEDS: Ondansetron 4 MG/2 ML VIAL IVP PRN (08:52)
[2020-05-02] MEDS ORDERED: *HR* FentaNYL PATCH 25 MCG PATCH TD SCH (13:30)
[2020-05-02] MEDS ORDERED: Potassium Chloride 20 MEQ, Lidocaine 1% 2 ML in 0.9 % Sodium Chloride 250 ML IVPB ONE (14:07)
[2020-05-02] MEDS ORDERED: Ringers Solution, Lactated 1,000 ML IVC SCH (14:45)
[2020-05-03 02:03] LABS: Basophils % 0.2 %; Eosinophils % 0.2 %; Hematocrit 42.3 % (37.5-50.1); Hemoglobin 15.1 g/dL (12.9-16.9); Immature Granulocytes % 0.4 % (0-4); Lymphocytes # 3.7 K/mcL (0.6-4.6); Lymphocytes % 35.7 %; Mean Corpuscular HGB Conc 35.7 g/dL (31.6-35.5); Mean Corpuscular Hemoglobin 32.5 pg (28.0-33.3); Mean Corpuscular Volume 91.2 fL (83.0-100.0); Mean Platelet Volume 9.5 fL (9.4-12.4); Monocytes # 0.6 K/mcL (0.0-1.3); Monocytes % 6.1 %; Platelet Count 247 K/mcL (140-400); Red Blood Count 4.64 M/mcL (4.19-5.50); Red Cell Distribution Width 11.9 % (11.5-14.5); Segmented Neutrophils % 57.4 %; White Blood Count 10.4 K/mcL (4.3-11.1)
[2020-05-03 02:23] LABS: Alanine Aminotransferase 23 Units/L (7-52); Albumin 4.6 g/dL (3.5-5.7); Alkaline Phosphatase 56 Units/L (34-104); Aspartate Amino Transferase 16 Units/L (13-39); BUN/Creatinine Ratio 11 (6-26); Bilirubin,Total 0.9 mg/dL (0.3-1.0); Blood Urea Nitrogen 9 mg/dL (6-20); Calcium 9.3 mg/dL (8.6-10.3); Carbon Dioxide 24 mEq/L (23-29); Chloride 104 mEq/L (98-107); Globulin 2.3 g/dL (2.4-3.5); Glucose 88 mg/dL (70-105); Magnesium 1.8 mg/dL (1.6-2.6); Osmolality,Calculated 282 (280-300); Phosphorous 2.1 mg/dL (2.7-4.5); Potassium 3.2 mEq/L (3.5-5.1); Sodium 137 mEq/L (136-145); Total Protein 6.9 g/dL (6.4-8.9); eGFR For African Americans > 60 (> 60); eGFR For Non-African Americans > 60 (> 60)
[2020-05-03] MEDS: Ondansetron 4 MG/2 ML VIAL IVP PRN (05:59)
[2020-05-03] MEDS ORDERED: Ketorolac 15 MG/ML VIAL IVP ONE (14:49)
[2020-05-03] MEDS ORDERED: Ketorolac 30 MG/ML VIAL IVP ONE (20:30)
[2020-05-03] MEDS ORDERED: *HR* LORazepam 2 MG/ML VIAL IVP ONE (20:30)
[2020-05-04 04:33] LABS: Basophils % 0.2 %; Eosinophils # 0.1 K/mcL (0.0-0.6); Eosinophils % 0.7 %; Hematocrit 43.5 % (37.5-50.1); Immature Granulocytes % 0.5 % (0-4); Lymphocytes # 3.2 K/mcL (0.6-4.6); Lymphocytes % 31.1 %; Mean Corpuscular HGB Conc 36.8 g/dL (31.6-35.5); Mean Corpuscular Hemoglobin 32.7 pg (28.0-33.3); Mean Corpuscular Volume 88.8 fL (83.0-100.0); Mean Platelet Volume 9.2 fL (9.4-12.4); Monocytes # 0.7 K/mcL (0.0-1.3); Monocytes % 6.7 %; Neutrophils # 6.3 K/mcL (1.6-8.9); Platelet Count 244 K/mcL (140-400); Red Cell Distribution Width 11.9 % (11.5-14.5); Segmented Neutrophils % 60.8 %; White Blood Count 10.4 K/mcL (4.3-11.1)
[2020-05-04 04:52] LABS: Alanine Aminotransferase 26 Units/L (7-52); Albumin 4.6 g/dL (3.5-5.7); Albumin/Globulin Ratio 1.9 (1.1-2.2); Alkaline Phosphatase 56 Units/L (34-104); Aspartate Amino Transferase 17 Units/L (13-39); BUN/Creatinine Ratio 11 (6-26); Bilirubin,Total 1.2 mg/dL (0.3-1.0); Blood Urea Nitrogen 9 mg/dL (6-20); Calcium 9.4 mg/dL (8.6-10.3); Carbon Dioxide 25 mEq/L (23-29); Chloride 102 mEq/L (98-107); Globulin 2.4 g/dL (2.4-3.5); Glucose 90 mg/dL (70-105); Osmolality,Calculated 282 (280-300); Phosphorous 3.3 mg/dL (2.7-4.5); Potassium 3.1 mEq/L (3.5-5.1); Sodium 137 mEq/L (136-145); eGFR For African Americans > 60 (> 60); eGFR For Non-African Americans > 60 (> 60)
[2020-05-04] MEDS ORDERED: Potassium Chloride 40 MEQ, Lidocaine 1% 2 ML in 0.9 % Sodium Chloride 500 ML IVPB ONE (07:58)
[2020-05-04] MEDS ORDERED: *HR* HYDROmorphone (PF) 1 MG/ML SYRINGE IVP ONE (08:11)
[2020-05-04] MEDS: Ondansetron 4 MG/2 ML VIAL IVP PRN (12:21)
[2020-05-04 16:47] VITALS: BP 145/89
== END 2020-05-04 18:23 | disposition short-term general hospital (02) ==
LOC: 3BNU 14:29 → EMEROOARM 14:29 → SUATTDRO 17:49 → 3BNU 18:40
PROVIDERS: ADMIT Family Medicine; ATTEND Family Medicine